=== PATIENT | female | born 1980 | race Caucasian/White ===

== ENCOUNTER 2017-01-28 18:51 | Inpatient (IN) | payer MEDICARE, MEDICAID ==
[~2017-01-28] VITALS: Ht 160 cm; Wt 78.1 kg
[~2017-01-28 18:51] MED LIST: BENZ1TAB10 PO; HALO5 PO; METF500T4 PO; OMEG1CAP6 PO; OXCA300T PO; TRAZ-147 PO; VITAD1000 PO
[2017-01-28] MEDS ORDERED: HALOPERIDOL LACTATE 5 MG/ML VIAL IM ONE (20:30)
[2017-01-28] MEDS ORDERED: DiphenhydrAMINE HCL 50 MG/ML VIAL IM ONE (20:30)
[2017-01-28] MEDS ORDERED: LORazepam 2 MG/ML VIAL IM ONE (20:30)
[2017-01-28] MEDS ORDERED: ZOLPIDEM TARTRATE 10 MG TABLET PO PRN (20:45)
[2017-01-28] MEDS ORDERED: HALOPERIDOL 5 MG TABLET PO PRN (20:45)
[2017-01-28 20:47] LABS: BASOPHILS % (AUTO) 0.4 % (0.0-2.0); EOSINOPHILS % (AUTO) 13.1 % (1.0-6.0); HEMATOCRIT 40.4 % (36-46); HEMOGLOBIN 13.1 g/dL (12.0-16.0); LYMPHOCYTES # (AUTO) 3.3 K/uL (1.0-4.8); LYMPHOCYTES % (AUTO) 28.1 % (22.0-44.0); MEAN CORPUSCULAR HEMOGLOBIN 28.3 pg (26.0-34.0); MEAN CORPUSCULAR HGB CONC 32.5 G/dL (31.0-37.0); MEAN CORPUSCULAR VOLUME 87 fL (80-100); MONOCYTES # (AUTO) 0.6 K/uL (0.1-1.0); MONOCYTES % (AUTO) 4.7 % (2.0-9.0); NEUTROPHILS # (AUTO) 6.4 K/uL (1.8-7.7); NEUTROPHILS % (AUTO) 53.7 % (40.0-70.0); PLATELET COUNT (AUTO) 211 K/uL (150-450); RED BLOOD CELL COUNT(AUTO) 4.65 MIL/uL (4.00-5.20); RED CELL DISTRIBUTION WIDTH 13.2 % (11.5-14.5); WHITE BLOOD COUNT (AUTO) 11.9 K/uL (4.5-11.0)
[2017-01-28 20:49] LABS: ANION GAP 9 mmol/L (8-16); CALCIUM, TOTAL 8.6 mg/dL (8.8-10.5); CARBON DIOXIDE 29 mmol/L (22-29); CHLORIDE 102 mmol/L (98-107); CREATININE 0.81 mg/dL (0.60-1.30); GLOMERULAR FILTR. RATE CALC > 60 mL/min (>60); POTASSIUM 3.6 mmol/L (3.5-5.1); SODIUM SERUM 140 mmol/L (136-145); UREA NITROGEN, BLOOD 7 mg/dL (7-18)
[2017-01-28 20:55] LABS: ALANINE AMINOTRANSFERASE 32 U/L (12-78); ALBUMIN 4.2 g/dL (3.4-5.0); ASPARTATE AMINOTRANSFERASE 14 U/L (15-37); BILIRUBIN,TOTAL 0.2 mg/dL (0.1-1.0); TOTAL PROTEIN, SERUM 8.3 g/dL (6.4-8.2)
[2017-01-29 00:16] VITALS: BP 125/76
[2017-01-29 00:17] LABS: GLUCOSE COMMENT 1 Doctor Notified; GLUCOSE,POINT OF CARE 229 MG/DL (70-110)
[2017-01-29] MEDS: DULoxetine HCL 30 MG CAPSULE PO SCH ×2 (01:00→09:11)
[2017-01-29] MEDS ORDERED: -PHARMACY VACCINE NOTE- MISC ONE ×2 (01:00)
[2017-01-29] MEDS ORDERED: INFLUENZA VIRUS VACCINE QVS 2016-17 (3YR+)/PF 60 MCG/0.5 ML SYRINGE IM ONE (01:00)
[2017-01-29] MEDS: BENZTROPINE MESYLATE 1 MG TABLET PO SCH ×2 (01:00→09:11)
[2017-01-29] MEDS: TraZODone HCL 100 MG TABLET PO SCH ×2 (01:01→20:35)
[2017-01-29] MEDS ORDERED: MAGNESIUM HYDROXIDE SUSPENSION 30 ML UDCUP PO PRN (08:15)
[2017-01-29] MEDS ORDERED: ALBUTEROL SULFATE HFA 90 MCG/PUFF 8 GM INHALER IH PRN (08:15)
[2017-01-29] MEDS ORDERED: MAG HYDROX/AL HYDROX/SIMETH ES 30 ML SUSPENSION UDCUP PO PRN (08:15)
[2017-01-29] MEDS ORDERED: BENZOCAINE/MENTHOL LOZENGE MM PRN (08:15)
[2017-01-29] MEDS ORDERED: IBUPROFEN 600 MG TABLET PO PRN (08:15)
[2017-01-29] MEDS ORDERED: ONDANSETRON HCL 4 MG TABLET PO PRN (08:15)
[2017-01-29] MEDS ORDERED: CloNIDine HCL 0.1 MG TABLET PO PRN (08:15)
[2017-01-29] MEDS ORDERED: BACITRACIN 28.4 GM OINTMENT TP PRN (08:15)
[2017-01-29] MEDS ORDERED: GLUCAGON,HUMAN RECOMBINANT 1 MG VIAL IM PRN (08:15)
[2017-01-29] MEDS ORDERED: PETROLATUM,WHITE 71 GM JELLY TP PRN (08:15)
[2017-01-29] MEDS ORDERED: LOPERAMIDE HCL 2 MG CAPSULE PO PRN (08:15)
[2017-01-29] MEDS ORDERED: ACETAMINOPHEN 325 MG TABLET PO PRN (08:15)
[2017-01-29 08:56] VITALS: BP 100/66
[2017-01-29] MEDS: FISH OIL/OMEGA-3 FATTY ACIDS 500 MG CAPSULE PO SCH (09:11)
[2017-01-29] MEDS: GABAPENTIN 300 MG CAPSULE PO SCH ×3 (09:11→16:21)
[2017-01-29] MEDS: HALOPERIDOL 5 MG TABLET PO SCH ×2 (09:11→16:22)
[2017-01-29] MEDS: CHOLECALCIFEROL (VIT D3) 1,000 UNITS TABLET PO SCH (09:11)
[2017-01-29 11:29] LABS: GLUCOSE,POINT OF CARE 263 MG/DL (70-110)
[2017-01-29] MEDS: LORazepam 2 MG TABLET PO PRN (11:55)
[2017-01-29 16:14] VITALS: BP 107/64
[2017-01-29 16:17] LABS: GLUCOSE,POINT OF CARE 165 MG/DL (70-110)
[2017-01-29] MEDS: MetFORMIN HCL 500 MG TABLET PO SCH (16:22)
[2017-01-29] MEDS: HALOPERIDOL 10 MG TABLET PO SCH (20:35)
[2017-01-29 20:36] LABS: GLUCOSE,POINT OF CARE 215 MG/DL (70-110)
[2017-01-30 06:31] LABS: GLUCOSE,POINT OF CARE 136 MG/DL (70-110)
[2017-01-30] MEDS: MetFORMIN HCL 500 MG TABLET PO SCH ×2 (06:42→16:56)
[2017-01-30] MEDS: HALOPERIDOL 5 MG TABLET PO SCH ×2 (08:25→16:57)
[2017-01-30] MEDS: DULoxetine HCL 30 MG CAPSULE PO SCH (08:25)
[2017-01-30] MEDS: FISH OIL/OMEGA-3 FATTY ACIDS 500 MG CAPSULE PO SCH (08:25)
[2017-01-30] MEDS: BENZTROPINE MESYLATE 1 MG TABLET PO SCH (08:25)
[2017-01-30] MEDS: CHOLECALCIFEROL (VIT D3) 1,000 UNITS TABLET PO SCH (08:26)
[2017-01-30] MEDS: GABAPENTIN 300 MG CAPSULE PO SCH ×3 (08:26→16:56)
[2017-01-30 09:08] VITALS: BP 100/59
[2017-01-30] MEDS: LORazepam 2 MG TABLET PO PRN (10:42)
[2017-01-30] MEDS ORDERED: DULoxetine HCL 30 MG CAPSULE PO ONE (11:15)
[2017-01-30 11:36] LABS: GLUCOSE,POINT OF CARE 210 MG/DL (70-110)
[2017-01-30 15:59] VITALS: BP 118/62
[2017-01-30 16:09] VITALS: BP 112/71
[2017-01-30 17:12] LABS: GLUCOSE,POINT OF CARE 154 MG/DL (70-110)
[2017-01-30] MEDS: INSULIN ASPART 100 UNITS/ML SQ PRN (20:15)
[2017-01-30] MEDS: HALOPERIDOL 10 MG TABLET PO SCH (20:16)
[2017-01-30] MEDS: TraZODone HCL 100 MG TABLET PO SCH (20:16)
[2017-01-30 21:17] LABS: GLUCOSE,POINT OF CARE 228 MG/DL (70-110)
[2017-01-31] MEDS: MetFORMIN HCL 500 MG TABLET PO SCH ×2 (06:39→16:27)
[2017-01-31] MEDS: INSULIN ASPART 100 UNITS/ML SQ PRN ×2 (06:40→17:05)
[2017-01-31 07:15] VITALS: BP 110/72
[2017-01-31 07:21] LABS: GLUCOSE,POINT OF CARE 156 MG/DL (70-110)
[2017-01-31] MEDS: HALOPERIDOL 5 MG TABLET PO SCH ×2 (08:35→16:26)
[2017-01-31] MEDS: CHOLECALCIFEROL (VIT D3) 1,000 UNITS TABLET PO SCH (08:35)
[2017-01-31] MEDS: GABAPENTIN 300 MG CAPSULE PO SCH ×3 (08:35→16:46)
[2017-01-31] MEDS: FISH OIL/OMEGA-3 FATTY ACIDS 500 MG CAPSULE PO SCH (08:36)
[2017-01-31] MEDS: DULoxetine HCL 60 MG CAPSULE PO SCH (08:36)
[2017-01-31] MEDS: BENZTROPINE MESYLATE 1 MG TABLET PO SCH (08:36)
[2017-01-31 08:45] VITALS: BP 114/59
[2017-01-31] MEDS ORDERED: DULoxetine HCL 30 MG CAPSULE PO SCH (09:00)
[2017-01-31 12:26] LABS: GLUCOSE,POINT OF CARE 175 MG/DL (70-110)
[2017-01-31] MEDS: LORazepam 2 MG TABLET PO PRN (14:43)
[2017-01-31 16:21] VITALS: BP 115/68
[2017-01-31 16:36] LABS: GLUCOSE,POINT OF CARE 186 MG/DL (70-110)
[2017-01-31] MEDS: HALOPERIDOL 10 MG TABLET PO SCH (20:17)
[2017-01-31] MEDS: TraZODone HCL 100 MG TABLET PO SCH (20:17)
[2017-01-31 20:22] LABS: GLUCOSE,POINT OF CARE 204 MG/DL (70-110)
[2017-02-01 06:47] LABS: GLUCOSE,POINT OF CARE 190 MG/DL (70-110)
[2017-02-01] MEDS: INSULIN ASPART 100 UNITS/ML SQ PRN (06:48)
[2017-02-01] MEDS: MetFORMIN HCL 500 MG TABLET PO SCH ×2 (06:53→16:09)
[2017-02-01 07:12] VITALS: BP 112/68
[2017-02-01 08:20] VITALS: BP 105/72
[2017-02-01] MEDS: GABAPENTIN 300 MG CAPSULE PO SCH ×3 (08:53→16:09)
[2017-02-01] MEDS: DULoxetine HCL 60 MG CAPSULE PO SCH (08:53)
[2017-02-01] MEDS: CHOLECALCIFEROL (VIT D3) 1,000 UNITS TABLET PO SCH (08:53)
[2017-02-01] MEDS: BENZTROPINE MESYLATE 1 MG TABLET PO SCH (08:53)
[2017-02-01] MEDS: HALOPERIDOL 5 MG TABLET PO SCH ×2 (08:53→16:09)
[2017-02-01] MEDS: FISH OIL/OMEGA-3 FATTY ACIDS 500 MG CAPSULE PO SCH (08:53)
[2017-02-01] MEDS: LORazepam 2 MG TABLET PO PRN ×2 (11:13→16:09)
[2017-02-01 11:47] LABS: GLUCOSE,POINT OF CARE 341 MG/DL (70-110)
[2017-02-01 16:47] VITALS: BP 115/71
[2017-02-01 16:57] LABS: GLUCOSE COMMENT 1 Received Meds; GLUCOSE,POINT OF CARE 175 MG/DL (70-110)
[2017-02-01] MEDS: TraZODone HCL 100 MG TABLET PO SCH (20:35)
[2017-02-01] MEDS: HALOPERIDOL 10 MG TABLET PO SCH (20:35)
[2017-02-01 21:06] LABS: GLUCOSE COMMENT 1 Received Meds; GLUCOSE,POINT OF CARE 185 MG/DL (70-110)
[2017-02-02 06:26] LABS: GLUCOSE,POINT OF CARE 152 MG/DL (70-110)
[2017-02-02] MEDS: INSULIN ASPART 100 UNITS/ML SQ PRN ×2 (06:50→12:18)
[2017-02-02] MEDS: MetFORMIN HCL 500 MG TABLET PO SCH ×2 (06:50→16:24)
[2017-02-02 08:24] VITALS: BP 100/60
[2017-02-02] MEDS: GABAPENTIN 300 MG CAPSULE PO SCH ×3 (08:42→16:24)
[2017-02-02] MEDS: BENZTROPINE MESYLATE 1 MG TABLET PO SCH (08:43)
[2017-02-02] MEDS: LORazepam 2 MG TABLET PO PRN (08:43)
[2017-02-02] MEDS: FISH OIL/OMEGA-3 FATTY ACIDS 500 MG CAPSULE PO SCH (08:43)
[2017-02-02] MEDS: DULoxetine HCL 60 MG CAPSULE PO SCH (08:43)
[2017-02-02] MEDS: HALOPERIDOL 5 MG TABLET PO SCH ×2 (08:43→16:24)
[2017-02-02] MEDS: CHOLECALCIFEROL (VIT D3) 1,000 UNITS TABLET PO SCH (08:43)
[2017-02-02 12:07] LABS: GLUCOSE,POINT OF CARE 266 MG/DL (70-110)
[2017-02-02 17:02] LABS: GLUCOSE COMMENT 1 Received Meds; GLUCOSE,POINT OF CARE 379 MG/DL (70-110)
[2017-02-02 18:09] VITALS: BP 100/65
[2017-02-02] MEDS: TraZODone HCL 100 MG TABLET PO SCH (20:13)
[2017-02-02] MEDS: HALOPERIDOL 10 MG TABLET PO SCH (20:13)
[2017-02-03 06:36] LABS: GLUCOSE,POINT OF CARE 163 MG/DL (70-110)
[2017-02-03 06:40] VITALS: BP 114/65
[2017-02-03] MEDS: MetFORMIN HCL 500 MG TABLET PO SCH (06:44)
[2017-02-03] MEDS: INSULIN ASPART 100 UNITS/ML SQ PRN (06:45)
[2017-02-03] MEDS: CHOLECALCIFEROL (VIT D3) 1,000 UNITS TABLET PO SCH (08:12)
[2017-02-03] MEDS: FISH OIL/OMEGA-3 FATTY ACIDS 500 MG CAPSULE PO SCH (08:12)
[2017-02-03] MEDS: GABAPENTIN 300 MG CAPSULE PO SCH (08:12)
[2017-02-03] MEDS: HALOPERIDOL 5 MG TABLET PO SCH (08:12)
[2017-02-03] MEDS: DULoxetine HCL 60 MG CAPSULE PO SCH (08:13)
[2017-02-03] MEDS: BENZTROPINE MESYLATE 1 MG TABLET PO SCH (08:13)
[2017-02-03] MEDS ORDERED: GABA-531 PO (09:37)
[2017-02-03] MEDS ORDERED: TRAZ-147 PO (09:38)
[2017-02-03] MEDS ORDERED: HALO10 PO (09:38)
[2017-02-03] MEDS ORDERED: HALO5 PO (09:38)
[2017-02-03] MEDS ORDERED: DULO60CA44 PO (09:39)
== END 2017-02-03 10:10 | disposition home or self-care (01) | DRG 885 ==
LOC: EMS 18:53 → B3A 20:56
DX: F25.0 Schizoaffective disorder, bipolar type (principal); R45.851 Suicidal ideations; E78.1 Pure hyperglyceridemia; E66.9 Obesity, unspecified; F41.9 Anxiety disorder, unspecified; E55.9 Vitamin D deficiency, unspecified; E11.65 Type 2 diabetes mellitus with hyperglycemia; M54.5 Low back pain; F43.10 Post-traumatic stress disorder, unspecified; F60.3 Borderline personality disorder; G47.00 Insomnia, unspecified; Z68.30 Body mass index [BMI] 30.0-30.9, adult; K59.00 Constipation, unspecified; Z79.899 Other long term (current) drug therapy; Z28.21 Immunization not carried out because of patient refusal; Z91.5 Personal history of self-harm; Z90.49 Acquired absence of other specified parts of digestive tract; Z98.51 Tubal ligation status
CPT/HCPCS: 82962; 96372; 99285; G0480; J1200; J1630; J2060

== ENCOUNTER 2017-03-31 13:13 | Inpatient (IN) | payer MEDICARE, MEDICAID ==
[~2017-03-31] VITALS: Ht 160 cm; Wt 79.6 kg
[~2017-03-31 13:13] MED LIST changes: +DULO60CA44 PO; +GABA-531 PO; +HALO10 PO; -OXCA300T PO
[2017-03-31] MEDS ORDERED: HALOPERIDOL 5 MG TABLET PO PRN (13:30)
[2017-03-31] MEDS ORDERED: ZOLPIDEM TARTRATE 10 MG TABLET PO PRN (13:30)
[2017-03-31] MEDS ORDERED: LORazepam 2 MG TABLET PO PRN (13:30)
[2017-03-31 13:33] VITALS: BP 124/85
[2017-03-31 16:00] VITALS: BP 123/60
[2017-03-31] MEDS: GABAPENTIN 300 MG CAPSULE PO SCH (17:29)
[2017-03-31] MEDS: HALOPERIDOL 5 MG TABLET PO SCH (17:29)
[2017-03-31] MEDS: MetFORMIN HCL 500 MG TABLET PO SCH (17:29)
[2017-03-31] MEDS: HALOPERIDOL 10 MG TABLET PO SCH (20:41)
[2017-03-31] MEDS: TraZODone HCL 100 MG TABLET PO SCH (20:41)
[2017-04-01 00:32] VITALS: BP 108/64
[2017-04-01] MEDS: MetFORMIN HCL 500 MG TABLET PO SCH ×2 (06:27→16:34)
[2017-04-01 09:10] VITALS: BP 108/68
[2017-04-01] MEDS ORDERED: BENZOCAINE/MENTHOL LOZENGE MM PRN (09:15)
[2017-04-01] MEDS ORDERED: BACITRACIN 28.4 GM OINTMENT TP PRN (09:15)
[2017-04-01] MEDS ORDERED: IBUPROFEN 600 MG TABLET PO PRN (09:15)
[2017-04-01] MEDS ORDERED: ONDANSETRON HCL 4 MG TABLET PO PRN (09:15)
[2017-04-01] MEDS ORDERED: MAG HYDROX/AL HYDROX/SIMETH ES 30 ML SUSPENSION UDCUP PO PRN (09:15)
[2017-04-01] MEDS ORDERED: PETROLATUM,WHITE 71 GM JELLY TP PRN (09:15)
[2017-04-01] MEDS ORDERED: GLUCAGON,HUMAN RECOMBINANT 1 MG VIAL IM PRN (09:15)
[2017-04-01] MEDS ORDERED: LOPERAMIDE HCL 2 MG CAPSULE PO PRN (09:15)
[2017-04-01] MEDS ORDERED: ALBUTEROL SULFATE HFA 90 MCG/PUFF 8 GM INHALER IH PRN (09:15)
[2017-04-01] MEDS ORDERED: ACETAMINOPHEN 325 MG TABLET PO PRN (09:15)
[2017-04-01] MEDS ORDERED: MAGNESIUM HYDROXIDE SUSPENSION 30 ML UDCUP PO PRN (09:15)
[2017-04-01] MEDS ORDERED: CloNIDine HCL 0.1 MG TABLET PO PRN (09:15)
[2017-04-01] MEDS: PIOGLITAZONE HCL 30 MG TABLET PO SCH (09:25)
[2017-04-01] MEDS: HALOPERIDOL 5 MG TABLET PO SCH ×2 (09:25→16:34)
[2017-04-01] MEDS: CHOLECALCIFEROL (VIT D3) 1,000 UNITS TABLET PO SCH (09:25)
[2017-04-01] MEDS: DULoxetine HCL 60 MG CAPSULE PO SCH (09:25)
[2017-04-01] MEDS: FISH OIL/OMEGA-3 FATTY ACIDS 500 MG CAPSULE PO SCH (09:25)
[2017-04-01] MEDS: BENZTROPINE MESYLATE 1 MG TABLET PO SCH (09:25)
[2017-04-01] MEDS: GABAPENTIN 300 MG CAPSULE PO SCH ×3 (09:25→16:34)
[2017-04-01] MEDS: INSULIN ASPART 100 UNITS/ML SQ PRN ×3 (10:56→21:12)
[2017-04-01 10:57] LABS: GLUCOSE,POINT OF CARE 144 MG/DL (70-110)
[2017-04-01 16:00] VITALS: BP 110/68
[2017-04-01 17:17] LABS: GLUCOSE,POINT OF CARE 159 MG/DL (70-110)
[2017-04-01] MEDS: HALOPERIDOL 10 MG TABLET PO SCH (20:16)
[2017-04-01] MEDS: TraZODone HCL 100 MG TABLET PO SCH (20:16)
[2017-04-01 21:17] LABS: GLUCOSE,POINT OF CARE 152 MG/DL (70-110)
[2017-04-02 00:56] VITALS: BP 100/67
[2017-04-02 06:27] LABS: GLUCOSE,POINT OF CARE 104 MG/DL (70-110)
[2017-04-02] MEDS: MetFORMIN HCL 500 MG TABLET PO SCH ×2 (07:01→16:21)
[2017-04-02 08:08] LABS: BASOPHILS % (AUTO) 0.5 % (0.0-2.0); EOSINOPHILS % (AUTO) 2.6 % (1.0-6.0); HEMATOCRIT 37.7 % (36-46); LYMPHOCYTES # (AUTO) 2.8 K/uL (1.0-4.8); LYMPHOCYTES % (AUTO) 40.1 % (22.0-44.0); MEAN CORPUSCULAR HEMOGLOBIN 27.7 pg (26.0-34.0); MEAN CORPUSCULAR HGB CONC 31.7 G/dL (31.0-37.0); MEAN CORPUSCULAR VOLUME 88 fL (80-100); MONOCYTES # (AUTO) 0.4 K/uL (0.1-1.0); MONOCYTES % (AUTO) 6.3 % (2.0-9.0); NEUTROPHILS # (AUTO) 3.6 K/uL (1.8-7.7); NEUTROPHILS % (AUTO) 50.5 % (40.0-70.0); PLATELET COUNT (AUTO) 186 K/uL (150-450); RED BLOOD CELL COUNT(AUTO) 4.31 MIL/uL (4.00-5.20); RED CELL DISTRIBUTION WIDTH 13.7 % (11.5-14.5); WHITE BLOOD COUNT (AUTO) 7.1 K/uL (4.5-11.0)
[2017-04-02 08:51] LABS: ALANINE AMINOTRANSFERASE 35 U/L (12-78); ALBUMIN 3.6 g/dL (3.4-5.0); ANION GAP 9 mmol/L (8-16); ASPARTATE AMINOTRANSFERASE 17 U/L (15-37); BILIRUBIN,TOTAL 0.2 mg/dL (0.1-1.0); CALCIUM, TOTAL 8.5 mg/dL (8.8-10.5); CARBON DIOXIDE 28 mmol/L (22-29); CHLORIDE 102 mmol/L (98-107); CREATININE 0.79 mg/dL (0.60-1.30); GLOMERULAR FILTR. RATE CALC > 60 mL/min (>60); POTASSIUM 3.8 mmol/L (3.5-5.1); SODIUM SERUM 139 mmol/L (136-145); THYROID STIMULATING HORMONE 1.27 uIU/mL (0.36-3.74); TOTAL PROTEIN, SERUM 6.9 g/dL (6.4-8.2); UREA NITROGEN, BLOOD 13 mg/dL (7-18)
[2017-04-02] MEDS: HALOPERIDOL 5 MG TABLET PO SCH ×2 (09:00→16:21)
[2017-04-02 09:29] VITALS: BP 96/67
[2017-04-02] MEDS: DULoxetine HCL 60 MG CAPSULE PO SCH (09:30)
[2017-04-02] MEDS: GABAPENTIN 300 MG CAPSULE PO SCH ×3 (09:30→16:21)
[2017-04-02] MEDS: CHOLECALCIFEROL (VIT D3) 1,000 UNITS TABLET PO SCH (09:30)
[2017-04-02] MEDS: FISH OIL/OMEGA-3 FATTY ACIDS 500 MG CAPSULE PO SCH (09:30)
[2017-04-02] MEDS: PIOGLITAZONE HCL 30 MG TABLET PO SCH (09:30)
[2017-04-02] MEDS: BENZTROPINE MESYLATE 1 MG TABLET PO SCH (09:30)
[2017-04-02 11:07] LABS: GLUCOSE,POINT OF CARE 131 MG/DL (70-110)
[2017-04-02 16:00] VITALS: BP 106/68
[2017-04-02 16:12] LABS: GLUCOSE,POINT OF CARE 165 MG/DL (70-110)
[2017-04-02] MEDS: INSULIN ASPART 100 UNITS/ML SQ PRN ×2 (16:22→21:02)
[2017-04-02] MEDS: TraZODone HCL 100 MG TABLET PO SCH (21:01)
[2017-04-02] MEDS: HALOPERIDOL 10 MG TABLET PO SCH (21:01)
[2017-04-02 23:54] LABS: GLUCOSE,POINT OF CARE 239 MG/DL (70-110)
[2017-04-03 00:50] VITALS: BP 100/63
[2017-04-03] MEDS ORDERED: PIOG30TA2 PO (05:37)
[2017-04-03] MEDS ORDERED: TRAZ-147 PO (05:37)
[2017-04-03] MEDS ORDERED: HALO5 PO (05:40)
[2017-04-03 06:42] LABS: GLUCOSE,POINT OF CARE 90 MG/DL (70-110)
[2017-04-03] MEDS: MetFORMIN HCL 500 MG TABLET PO SCH (06:51)
[2017-04-03 08:09] VITALS: BP 102/57
[2017-04-03] MEDS: GABAPENTIN 300 MG CAPSULE PO SCH (08:32)
[2017-04-03] MEDS: DULoxetine HCL 60 MG CAPSULE PO SCH (08:32)
[2017-04-03] MEDS: FISH OIL/OMEGA-3 FATTY ACIDS 500 MG CAPSULE PO SCH (08:32)
[2017-04-03] MEDS: PIOGLITAZONE HCL 30 MG TABLET PO SCH (08:32)
[2017-04-03] MEDS: HALOPERIDOL 5 MG TABLET PO SCH (08:32)
[2017-04-03] MEDS: CHOLECALCIFEROL (VIT D3) 1,000 UNITS TABLET PO SCH (08:32)
[2017-04-03] MEDS: BENZTROPINE MESYLATE 1 MG TABLET PO SCH (08:32)
[2017-04-03] MEDS ORDERED: GABA-531 PO (08:58)
== END 2017-04-03 09:45 | disposition home or self-care (01) | DRG 750 ==
LOC: B2S 13:35 → EDSTATUS 14:23
DX: F25.0 Schizoaffective disorder, bipolar type (principal); R45.851 Suicidal ideations; E11.65 Type 2 diabetes mellitus with hyperglycemia; E78.5 Hyperlipidemia, unspecified; E55.9 Vitamin D deficiency, unspecified; F41.9 Anxiety disorder, unspecified; F60.3 Borderline personality disorder; K59.00 Constipation, unspecified; G47.00 Insomnia, unspecified; E66.9 Obesity, unspecified; Z91.5 Personal history of self-harm; Z68.31 Body mass index [BMI] 31.0-31.9, adult; Z98.51 Tubal ligation status; Z90.49 Acquired absence of other specified parts of digestive tract
CPT/HCPCS: 82962; 84439; 84443

== ENCOUNTER 2017-05-20 12:45 | Inpatient (IN) | payer MEDICARE, MEDICAID ==
[~2017-05-20] VITALS: Ht 160 cm; Wt 83.1 kg
[~2017-05-20 12:45] MED LIST changes: +PIOG30TA2 PO
[2017-05-20] MEDS ORDERED: ZOLPIDEM TARTRATE 10 MG TABLET PO PRN (13:15)
[2017-05-20 13:34] VITALS: BP 112/79
[2017-05-20 14:16] VITALS: BP 118/78
[2017-05-20 15:01] LABS: GLUCOSE,POINT OF CARE 84 MG/DL (70-110)
[2017-05-20] MEDS: GABAPENTIN 300 MG CAPSULE PO SCH ×2 (15:06→16:21)
[2017-05-20 16:00] VITALS: BP 117/65
[2017-05-20] MEDS: LOVASTATIN 20 MG TABLET PO SCH (16:21)
[2017-05-20] MEDS: GlipiZIDE 10 MG TABLET PO SCH (16:21)
[2017-05-20] MEDS: HALOPERIDOL 5 MG TABLET PO SCH (16:21)
[2017-05-20] MEDS: MetFORMIN HCL 500 MG TABLET PO SCH (16:55)
[2017-05-20] MEDS ORDERED: LORazepam 2 MG/ML VIAL ONE (18:25)
[2017-05-20] MEDS ORDERED: DiphenhydrAMINE HCL 50 MG/ML VIAL IM ONE ×2 (18:30)
[2017-05-20] MEDS ORDERED: LORazepam 2 MG/ML VIAL IM ONE ×2 (18:30)
[2017-05-20] MEDS ORDERED: HALOPERIDOL LACTATE 5 MG/ML VIAL IM ONE ×2 (18:30)
[2017-05-20] MEDS: TraZODone HCL 100 MG TABLET PO SCH (21:00)
[2017-05-20] MEDS: HALOPERIDOL 10 MG TABLET PO SCH (21:00)
[2017-05-20 23:22] LABS: GLUCOSE,POINT OF CARE 96 MG/DL (70-110)
[2017-05-21 01:45] VITALS: BP 107/62
[2017-05-21] MEDS: MetFORMIN HCL 500 MG TABLET PO SCH ×2 (06:46→16:44)
[2017-05-21] MEDS: GlipiZIDE 10 MG TABLET PO SCH ×2 (06:46→16:14)
[2017-05-21 06:48] LABS: GLUCOSE,POINT OF CARE 72 MG/DL (70-110)
[2017-05-21 08:40] LABS: BASOPHILS # (AUTO) 0.04 K/uL (0.00-0.20); BASOPHILS % (AUTO) 0.5 % (0.0-2.0); EOSINOPHILS # (AUTO) 0.18 K/uL (0.00-0.70); EOSINOPHILS % (AUTO) 2.36 % (1.0-6.0); HEMATOCRIT 35.9 % (36-46); HEMOGLOBIN 11.8 g/dL (12.0-16.0); LYMPHOCYTES # (AUTO) 2.6 K/uL (1.0-4.8); LYMPHOCYTES % (AUTO) 34.3 % (22.0-44.0); MEAN CORPUSCULAR VOLUME 88 fL (80-100); MONOCYTES # (AUTO) 0.6 K/uL (0.1-1.0); MONOCYTES % (AUTO) 7.4 % (2.0-9.0); NEUTROPHILS # (AUTO) 4.2 K/uL (1.8-7.7); NEUTROPHILS % (AUTO) 55.5 % (40.0-70.0); PLATELET COUNT (AUTO) 187 K/uL (150-450); RED BLOOD CELL COUNT(AUTO) 4.09 MIL/uL (4.00-5.20); RED CELL DISTRIBUTION WIDTH 13.6 % (11.5-14.5); WHITE BLOOD COUNT (AUTO) 7.5 K/uL (4.5-11.0)
[2017-05-21] MEDS: DULoxetine HCL 60 MG CAPSULE PO SCH (08:49)
[2017-05-21] MEDS: FISH OIL/OMEGA-3 FATTY ACIDS 500 MG CAPSULE PO SCH (08:49)
[2017-05-21] MEDS: HALOPERIDOL 5 MG TABLET PO SCH ×2 (08:50→16:14)
[2017-05-21] MEDS: CHOLECALCIFEROL (VIT D3) 1,000 UNITS TABLET PO SCH (08:50)
[2017-05-21] MEDS: GABAPENTIN 300 MG CAPSULE PO SCH ×3 (08:50→16:14)
[2017-05-21] MEDS: BENZTROPINE MESYLATE 1 MG TABLET PO SCH (08:50)
[2017-05-21] MEDS ORDERED: ONDANSETRON HCL 4 MG TABLET PO PRN (09:00)
[2017-05-21] MEDS ORDERED: PETROLATUM,WHITE 71 GM JELLY TP PRN (09:00)
[2017-05-21] MEDS ORDERED: PIOGLITAZONE HCL 30 MG TABLET PO SCH (09:00)
[2017-05-21] MEDS ORDERED: CloNIDine HCL 0.1 MG TABLET PO PRN (09:00)
[2017-05-21] MEDS ORDERED: MAGNESIUM HYDROXIDE SUSPENSION 30 ML UDCUP PO PRN (09:00)
[2017-05-21] MEDS ORDERED: BENZOCAINE/MENTHOL LOZENGE MM PRN (09:00)
[2017-05-21] MEDS ORDERED: BACITRACIN 28.4 GM OINTMENT TP PRN (09:00)
[2017-05-21] MEDS ORDERED: ACETAMINOPHEN 325 MG TABLET PO PRN (09:00)
[2017-05-21] MEDS ORDERED: LOPERAMIDE HCL 2 MG CAPSULE PO PRN (09:00)
[2017-05-21] MEDS ORDERED: ALBUTEROL SULFATE HFA 90 MCG/PUFF 8 GM INHALER IH PRN (09:00)
[2017-05-21] MEDS ORDERED: MAG HYDROX/AL HYDROX/SIMETH ES 30 ML SUSPENSION UDCUP PO PRN (09:00)
[2017-05-21 09:16] VITALS: BP 104/65
[2017-05-21] MEDS: LORazepam 1 MG TABLET PO PRN ×2 (09:16→16:14)
[2017-05-21] MEDS: IBUPROFEN 600 MG TABLET PO PRN (09:16)
[2017-05-21 09:26] LABS: HEMOGLOBIN A1C 7.7 % (4.5-6.2)
[2017-05-21 09:39] LABS: ANION GAP 9 mmol/L (8-16); CARBON DIOXIDE 27 mmol/L (22-29); CHLORIDE 103 mmol/L (98-107); CHOL/HDL RATIO 4.2 (3.9-5.7); CREATININE 0.82 mg/dL (0.60-1.30); GLOMERULAR FILTR. RATE CALC > 60 mL/min (>60); POTASSIUM 4.1 mmol/L (3.5-5.1); SODIUM SERUM 139 mmol/L (136-145); THYROID STIMULATING HORMONE 2.42 uIU/mL (0.36-3.74); UREA NITROGEN, BLOOD 10 mg/dL (7-18)
[2017-05-21 16:06] VITALS: BP 103/66
[2017-05-21] MEDS: LOVASTATIN 20 MG TABLET PO SCH (16:14)
[2017-05-21 16:47] LABS: GLUCOSE,POINT OF CARE 130 MG/DL (70-110)
[2017-05-21 17:35] VITALS: BP 112/68
[2017-05-21] MEDS: TraZODone HCL 100 MG TABLET PO SCH (20:35)
[2017-05-21] MEDS: HALOPERIDOL 10 MG TABLET PO SCH (20:35)
[2017-05-22] MEDS: GlipiZIDE 10 MG TABLET PO SCH ×2 (06:35→16:09)
[2017-05-22] MEDS: MetFORMIN HCL 500 MG TABLET PO SCH ×2 (07:06→17:10)
[2017-05-22 07:07] LABS: GLUCOSE,POINT OF CARE 96 MG/DL (70-110)
[2017-05-22 08:39] VITALS: BP 97/62
[2017-05-22] MEDS: DULoxetine HCL 60 MG CAPSULE PO SCH (09:32)
[2017-05-22] MEDS: BENZTROPINE MESYLATE 1 MG TABLET PO SCH (09:32)
[2017-05-22] MEDS: FISH OIL/OMEGA-3 FATTY ACIDS 500 MG CAPSULE PO SCH (09:32)
[2017-05-22] MEDS: HALOPERIDOL 5 MG TABLET PO SCH ×2 (09:32→16:09)
[2017-05-22] MEDS: GABAPENTIN 300 MG CAPSULE PO SCH ×3 (09:33→16:10)
[2017-05-22] MEDS: CHOLECALCIFEROL (VIT D3) 1,000 UNITS TABLET PO SCH (09:33)
[2017-05-22 11:34] VITALS: BP 112/70
[2017-05-22] MEDS: IBUPROFEN 600 MG TABLET PO PRN (11:36)
[2017-05-22 12:36] VITALS: BP 105/68
[2017-05-22] MEDS: LORazepam 1 MG TABLET PO PRN (16:10)
[2017-05-22] MEDS: LOVASTATIN 20 MG TABLET PO SCH (16:10)
[2017-05-22 16:16] VITALS: BP 109/69
[2017-05-22 16:22] LABS: GLUCOSE,POINT OF CARE 121 MG/DL (70-110)
[2017-05-22] MEDS: TraZODone HCL 100 MG TABLET PO SCH (20:26)
[2017-05-22] MEDS: HALOPERIDOL 10 MG TABLET PO SCH (20:26)
[2017-05-23 05:25] VITALS: BP 110/70
[2017-05-23 05:37] LABS: GLUCOSE COMMENT 1 Received Meds; GLUCOSE,POINT OF CARE 120 MG/DL (70-110)
[2017-05-23] MEDS: GlipiZIDE 10 MG TABLET PO SCH (06:40)
[2017-05-23] MEDS: MetFORMIN HCL 500 MG TABLET PO SCH (06:40)
[2017-05-23] MEDS ORDERED: FERROUS SULFATE 325 MG EC TABLET PO SCH (07:00)
[2017-05-23] MEDS ORDERED: GLIP5 PO (08:03)
[2017-05-23] MEDS ORDERED: LOVA20 PO (08:03)
[2017-05-23] MEDS ORDERED: FERR-89 PO (08:03)
[2017-05-23 08:09] VITALS: BP 102/67
[2017-05-23] MEDS: BENZTROPINE MESYLATE 1 MG TABLET PO SCH (09:26)
[2017-05-23] MEDS: FISH OIL/OMEGA-3 FATTY ACIDS 500 MG CAPSULE PO SCH (09:26)
[2017-05-23] MEDS: LORazepam 1 MG TABLET PO PRN (09:27)
[2017-05-23] MEDS: CHOLECALCIFEROL (VIT D3) 1,000 UNITS TABLET PO SCH (09:27)
[2017-05-23] MEDS: GABAPENTIN 300 MG CAPSULE PO SCH ×2 (09:27→12:17)
[2017-05-23] MEDS: DULoxetine HCL 60 MG CAPSULE PO SCH (09:27)
[2017-05-23] MEDS: HALOPERIDOL 5 MG TABLET PO SCH (09:29)
[2017-05-23] MEDS: IBUPROFEN 600 MG TABLET PO PRN (09:33)
== END 2017-05-23 12:30 | disposition home or self-care (01) | DRG 885 ==
LOC: B3A 13:30
DX: F25.0 Schizoaffective disorder, bipolar type (principal); E11.65 Type 2 diabetes mellitus with hyperglycemia; K59.00 Constipation, unspecified; E55.9 Vitamin D deficiency, unspecified; E78.5 Hyperlipidemia, unspecified; E66.9 Obesity, unspecified; G47.00 Insomnia, unspecified; M54.5 Low back pain; Z68.32 Body mass index [BMI] 32.0-32.9, adult
CPT/HCPCS: 82962; 83036; 84436; 84443; J1200; J1630; J2060

== ENCOUNTER 2017-05-20 20:55 | Emergency (ER) | payer MEDICARE, OTHER ==
[~2017-05-20] VITALS: Ht 162.6 cm; Wt 90.0 kg
[2017-05-21 00:54] VITALS: BP 124/72
== END 2017-05-21 01:13 | disposition home or self-care (01) ==
LOC: EMS 20:58
DX: S60.221A Contusion of right hand, initial encounter (principal); E11.9 Type 2 diabetes mellitus without complications; Z02.89 Encounter for other administrative examinations; W22.8XXA Striking against or struck by other objects, initial encounter; Y93.89 Activity, other specified; Y92.89 Other specified places as the place of occurrence of the external cause; Y99.8 Other external cause status
CPT/HCPCS: 29280; 81025; 99284

== ENCOUNTER 2017-05-27 15:31 | Inpatient (IN) | payer MEDICARE, MEDICAID ==
[~2017-05-27] VITALS: Ht 160 cm; Wt 82.3 kg
[~2017-05-27 15:31] MED LIST changes: +FERR-89 PO; +GLIP5 PO; +LOVA20 PO; -PIOG30TA2 PO
[2017-05-27 17:28] VITALS: BP 104/69
[2017-05-27] MEDS: GABAPENTIN 300 MG CAPSULE PO SCH (18:35)
[2017-05-27] MEDS: LORazepam 2 MG TABLET PO PRN (18:35)
[2017-05-27] MEDS: HALOPERIDOL 5 MG TABLET PO PRN (18:35)
[2017-05-27] MEDS ORDERED: ACETAMINOPHEN 650 MG/20.3 ML SOLUTION UDCUP PO PRN (18:45)
[2017-05-27] MEDS: HALOPERIDOL 10 MG TABLET PO SCH (20:26)
[2017-05-27] MEDS: TraZODone HCL 100 MG TABLET PO SCH (20:27)
[2017-05-28 06:25] VITALS: BP 118/76
[2017-05-28] MEDS: BENZTROPINE MESYLATE 1 MG TABLET PO SCH (09:00)
[2017-05-28] MEDS: DULoxetine HCL 60 MG CAPSULE PO SCH (09:00)
[2017-05-28] MEDS: GABAPENTIN 300 MG CAPSULE PO SCH ×3 (09:00→16:39)
[2017-05-28 09:04] LABS: BASOPHILS # (AUTO) 0.03 K/uL (0.00-0.20); BASOPHILS % (AUTO) 0.4 % (0.0-2.0); EOSINOPHILS # (AUTO) 0.21 K/uL (0.00-0.70); EOSINOPHILS % (AUTO) 2.73 % (1.0-6.0); HEMATOCRIT 38.4 % (36-46); HEMOGLOBIN 12.5 g/dL (12.0-16.0); LYMPHOCYTES # (AUTO) 2.7 K/uL (1.0-4.8); LYMPHOCYTES % (AUTO) 34.3 % (22.0-44.0); MEAN CORPUSCULAR HEMOGLOBIN 28.8 pg (26.0-34.0); MEAN CORPUSCULAR HGB CONC 32.6 G/dL (31.0-37.0); MEAN CORPUSCULAR VOLUME 88 fL (80-100); MONOCYTES # (AUTO) 0.6 K/uL (0.1-1.0); MONOCYTES % (AUTO) 7.7 % (2.0-9.0); NEUTROPHILS # (AUTO) 4.3 K/uL (1.8-7.7); NEUTROPHILS % (AUTO) 54.8 % (40.0-70.0); PLATELET COUNT (AUTO) 201 K/uL (150-450); RED BLOOD CELL COUNT(AUTO) 4.34 MIL/uL (4.00-5.20); RED CELL DISTRIBUTION WIDTH 13.6 % (11.5-14.5); WHITE BLOOD COUNT (AUTO) 7.8 K/uL (4.5-11.0)
[2017-05-28] MEDS ORDERED: LOPERAMIDE HCL 2 MG CAPSULE PO PRN (09:15)
[2017-05-28] MEDS ORDERED: PETROLATUM,WHITE 71 GM JELLY TP PRN (09:15)
[2017-05-28] MEDS ORDERED: MAGNESIUM HYDROXIDE SUSPENSION 30 ML UDCUP PO PRN (09:15)
[2017-05-28] MEDS ORDERED: CloNIDine HCL 0.1 MG TABLET PO PRN (09:15)
[2017-05-28] MEDS ORDERED: BACITRACIN 28.4 GM OINTMENT TP PRN (09:15)
[2017-05-28] MEDS ORDERED: MAG HYDROX/AL HYDROX/SIMETH ES 30 ML SUSPENSION UDCUP PO PRN (09:15)
[2017-05-28] MEDS ORDERED: ONDANSETRON HCL 4 MG TABLET PO PRN (09:15)
[2017-05-28] MEDS ORDERED: ALBUTEROL SULFATE HFA 90 MCG/PUFF 8 GM INHALER IH PRN (09:15)
[2017-05-28] MEDS ORDERED: BENZOCAINE/MENTHOL LOZENGE MM PRN (09:15)
[2017-05-28] MEDS: ACETAMINOPHEN 325 MG TABLET PO PRN ×2 (09:23→16:40)
[2017-05-28 09:26] VITALS: BP 114/75
[2017-05-28 09:31] LABS: ALANINE AMINOTRANSFERASE 26 U/L (12-78); ALBUMIN 3.7 g/dL (3.4-5.0); ANION GAP 8 mmol/L (8-16); ASPARTATE AMINOTRANSFERASE 12 U/L (15-37); BILIRUBIN,TOTAL 0.3 mg/dL (0.1-1.0); CALCIUM, TOTAL 9.3 mg/dL (8.8-10.5); CARBON DIOXIDE 29 mmol/L (22-29); CHLORIDE 104 mmol/L (98-107); CHOL/HDL RATIO 5.6 (3.9-5.7); CREATININE 0.81 mg/dL (0.60-1.30); GLOMERULAR FILTR. RATE CALC > 60 mL/min (>60); POTASSIUM 4.4 mmol/L (3.5-5.1); SODIUM SERUM 141 mmol/L (136-145); THYROID STIMULATING HORMONE 0.97 uIU/mL (0.36-3.74); TOTAL PROTEIN, SERUM 6.9 g/dL (6.4-8.2); UREA NITROGEN, BLOOD 10 mg/dL (7-18)
[2017-05-28 10:23] VITALS: BP 112/72
[2017-05-28 12:02] LABS: GLUCOSE,POINT OF CARE 167 MG/DL (70-110)
[2017-05-28 16:19] VITALS: BP 109/66
[2017-05-28] MEDS: MetFORMIN HCL 500 MG TABLET PO SCH (16:39)
[2017-05-28] MEDS: GlipiZIDE 5 MG TABLET PO SCH (16:39)
[2017-05-28] MEDS: LORazepam 2 MG TABLET PO PRN (16:40)
[2017-05-28] MEDS: HALOPERIDOL 5 MG TABLET PO PRN (16:40)
[2017-05-28 16:52] LABS: GLUCOSE COMMENT 1 Received Meds; GLUCOSE,POINT OF CARE 190 MG/DL (70-110)
[2017-05-28] MEDS: HALOPERIDOL 10 MG TABLET PO SCH (20:33)
[2017-05-28] MEDS: TraZODone HCL 100 MG TABLET PO SCH (20:33)
[2017-05-29] MEDS: GlipiZIDE 5 MG TABLET PO SCH ×2 (06:33→16:20)
[2017-05-29] MEDS: MetFORMIN HCL 500 MG TABLET PO SCH ×2 (06:33→16:57)
[2017-05-29] MEDS: FISH OIL/OMEGA-3 FATTY ACIDS 500 MG CAPSULE PO SCH (08:26)
[2017-05-29] MEDS: GABAPENTIN 300 MG CAPSULE PO SCH ×3 (08:26→16:20)
[2017-05-29] MEDS: CHOLECALCIFEROL (VIT D3) 1,000 UNITS TABLET PO SCH (08:27)
[2017-05-29] MEDS: BENZTROPINE MESYLATE 1 MG TABLET PO SCH (08:27)
[2017-05-29] MEDS: LORazepam 2 MG TABLET PO PRN ×2 (08:27→16:57)
[2017-05-29] MEDS: DULoxetine HCL 60 MG CAPSULE PO SCH (08:27)
[2017-05-29 08:42] VITALS: BP 94/60
[2017-05-29 09:04] LABS: GLUCOSE,POINT OF CARE 116 MG/DL (70-110)
[2017-05-29 16:06] VITALS: BP 106/68
[2017-05-29] MEDS: IBUPROFEN 600 MG TABLET PO PRN (16:20)
[2017-05-29] MEDS: HALOPERIDOL 5 MG TABLET PO PRN (16:20)
[2017-05-29 17:20] VITALS: BP 118/65
[2017-05-29 18:17] LABS: GLUCOSE,POINT OF CARE 259 MG/DL (70-110)
[2017-05-29 18:17] LABS: GLUCOSE,POINT OF CARE 86 MG/DL (70-110)
[2017-05-29] MEDS: HALOPERIDOL 10 MG TABLET PO SCH (20:12)
[2017-05-29] MEDS: TraZODone HCL 100 MG TABLET PO SCH (20:12)
[2017-05-29 20:46] LABS: GLUCOSE,POINT OF CARE 155 MG/DL (70-110)
[2017-05-29] MEDS: ZOLPIDEM TARTRATE 10 MG TABLET PO PRN (21:02)
[2017-05-30 06:16] LABS: GLUCOSE,POINT OF CARE 108 MG/DL (70-110)
[2017-05-30] MEDS: MetFORMIN HCL 500 MG TABLET PO SCH ×2 (06:32→16:51)
[2017-05-30] MEDS: GlipiZIDE 5 MG TABLET PO SCH ×2 (06:32→16:40)
[2017-05-30] MEDS ORDERED: GLUCAGON,HUMAN RECOMBINANT 1 MG VIAL IM PRN (08:00)
[2017-05-30 08:49] VITALS: BP 107/63
[2017-05-30] MEDS: HALOPERIDOL 5 MG TABLET PO SCH ×2 (09:44→16:40)
[2017-05-30] MEDS: BENZTROPINE MESYLATE 1 MG TABLET PO SCH (09:44)
[2017-05-30] MEDS: CHOLECALCIFEROL (VIT D3) 1,000 UNITS TABLET PO SCH (09:44)
[2017-05-30] MEDS: FISH OIL/OMEGA-3 FATTY ACIDS 500 MG CAPSULE PO SCH (09:44)
[2017-05-30] MEDS: GABAPENTIN 300 MG CAPSULE PO SCH ×3 (09:44→16:40)
[2017-05-30] MEDS: DULoxetine HCL 60 MG CAPSULE PO SCH (09:44)
[2017-05-30 10:15] VITALS: BP 110/63
[2017-05-30] MEDS: IBUPROFEN 600 MG TABLET PO PRN (10:17)
[2017-05-30 11:47] LABS: GLUCOSE,POINT OF CARE 126 MG/DL (70-110)
[2017-05-30] MEDS: LORazepam 2 MG TABLET PO PRN (13:54)
[2017-05-30 16:08] VITALS: BP 115/71
[2017-05-30 16:43] LABS: GLUCOSE,POINT OF CARE 170 MG/DL (70-110)
[2017-05-30] MEDS: HALOPERIDOL 10 MG TABLET PO SCH (20:43)
[2017-05-30] MEDS: TraZODone HCL 100 MG TABLET PO SCH (20:44)
[2017-05-30 20:57] LABS: GLUCOSE,POINT OF CARE 162 MG/DL (70-110)
[2017-05-31 06:28] LABS: GLUCOSE,POINT OF CARE 104 MG/DL (70-110)
[2017-05-31] MEDS: MetFORMIN HCL 500 MG TABLET PO SCH ×2 (06:34→16:52)
[2017-05-31] MEDS: GlipiZIDE 5 MG TABLET PO SCH ×2 (06:34→16:22)
[2017-05-31 07:07] VITALS: BP 108/66
[2017-05-31 08:32] VITALS: BP 103/55
[2017-05-31] MEDS: BENZTROPINE MESYLATE 1 MG TABLET PO SCH (10:22)
[2017-05-31] MEDS: FISH OIL/OMEGA-3 FATTY ACIDS 500 MG CAPSULE PO SCH (10:22)
[2017-05-31] MEDS: GABAPENTIN 300 MG CAPSULE PO SCH ×3 (10:22→16:22)
[2017-05-31] MEDS: HALOPERIDOL 5 MG TABLET PO SCH ×2 (10:22→16:22)
[2017-05-31] MEDS: DULoxetine HCL 60 MG CAPSULE PO SCH (10:22)
[2017-05-31] MEDS: CHOLECALCIFEROL (VIT D3) 1,000 UNITS TABLET PO SCH (10:22)
[2017-05-31] MEDS: IBUPROFEN 600 MG TABLET PO PRN ×2 (10:30→17:55)
[2017-05-31 11:37] LABS: GLUCOSE,POINT OF CARE 196 MG/DL (70-110)
[2017-05-31] MEDS: INSULIN ASPART 100 UNITS/ML SQ PRN (12:37)
[2017-05-31 16:15] VITALS: BP 132/74
[2017-05-31 16:42] LABS: GLUCOSE,POINT OF CARE 163 MG/DL (70-110)
[2017-05-31] MEDS: LORazepam 2 MG TABLET PO PRN (17:55)
[2017-05-31] MEDS: HALOPERIDOL 10 MG TABLET PO SCH (20:27)
[2017-05-31] MEDS: TraZODone HCL 100 MG TABLET PO SCH (20:27)
[2017-05-31 20:52] LABS: GLUCOSE,POINT OF CARE 109 MG/DL (70-110)
[2017-06-01] MEDS: MetFORMIN HCL 500 MG TABLET PO SCH ×2 (06:50→16:52)
[2017-06-01] MEDS: GlipiZIDE 5 MG TABLET PO SCH ×2 (06:50→16:38)
[2017-06-01 06:52] LABS: GLUCOSE,POINT OF CARE 104 MG/DL (70-110)
[2017-06-01 08:35] VITALS: BP 103/57
[2017-06-01] MEDS: CHOLECALCIFEROL (VIT D3) 1,000 UNITS TABLET PO SCH (08:44)
[2017-06-01] MEDS: DULoxetine HCL 60 MG CAPSULE PO SCH (08:44)
[2017-06-01] MEDS: GABAPENTIN 300 MG CAPSULE PO SCH ×3 (08:44→16:38)
[2017-06-01] MEDS: BENZTROPINE MESYLATE 1 MG TABLET PO SCH (08:45)
[2017-06-01] MEDS: HALOPERIDOL 5 MG TABLET PO SCH ×2 (08:45→16:39)
[2017-06-01] MEDS: IBUPROFEN 600 MG TABLET PO PRN ×2 (08:45→16:39)
[2017-06-01] MEDS: FISH OIL/OMEGA-3 FATTY ACIDS 500 MG CAPSULE PO SCH (08:45)
[2017-06-01 09:45] VITALS: BP 110/62
[2017-06-01 11:53] LABS: GLUCOSE,POINT OF CARE 148 MG/DL (70-110)
[2017-06-01 16:27] VITALS: BP 116/69
[2017-06-01 16:47] LABS: GLUCOSE,POINT OF CARE 162 MG/DL (70-110)
[2017-06-01] MEDS: LORazepam 2 MG TABLET PO PRN (18:29)
[2017-06-01] MEDS: HALOPERIDOL 5 MG TABLET PO PRN (18:29)
[2017-06-01] MEDS: HALOPERIDOL 10 MG TABLET PO SCH (20:39)
[2017-06-01] MEDS: TraZODone HCL 100 MG TABLET PO SCH (20:39)
[2017-06-01 21:07] LABS: GLUCOSE,POINT OF CARE 94 MG/DL (70-110)
[2017-06-02] MEDS: MetFORMIN HCL 500 MG TABLET PO SCH ×2 (06:31→16:17)
[2017-06-02] MEDS: GlipiZIDE 5 MG TABLET PO SCH ×2 (06:31→16:18)
[2017-06-02 06:32] LABS: GLUCOSE,POINT OF CARE 90 MG/DL (70-110)
[2017-06-02 06:55] VITALS: BP 107/77
[2017-06-02] MEDS: GABAPENTIN 300 MG CAPSULE PO SCH ×3 (08:41→16:17)
[2017-06-02] MEDS: HALOPERIDOL 5 MG TABLET PO SCH ×2 (08:41→16:17)
[2017-06-02] MEDS: FISH OIL/OMEGA-3 FATTY ACIDS 500 MG CAPSULE PO SCH (08:41)
[2017-06-02] MEDS: BENZTROPINE MESYLATE 1 MG TABLET PO SCH (08:42)
[2017-06-02] MEDS: CHOLECALCIFEROL (VIT D3) 1,000 UNITS TABLET PO SCH (08:42)
[2017-06-02] MEDS: DULoxetine HCL 60 MG CAPSULE PO SCH (08:42)
[2017-06-02 08:43] VITALS: BP 113/68
[2017-06-02] MEDS: IBUPROFEN 600 MG TABLET PO PRN (08:43)
[2017-06-02 12:22] LABS: GLUCOSE,POINT OF CARE 88 MG/DL (70-110)
[2017-06-02 16:12] LABS: GLUCOSE COMMENT 1 Received Meds; GLUCOSE,POINT OF CARE 169 MG/DL (70-110)
[2017-06-02] MEDS: INSULIN ASPART 100 UNITS/ML SQ PRN ×2 (16:18→20:50)
[2017-06-02 16:22] VITALS: BP 110/76
[2017-06-02] MEDS: TraZODone HCL 100 MG TABLET PO SCH (20:09)
[2017-06-02] MEDS: HALOPERIDOL 10 MG TABLET PO SCH (20:09)
[2017-06-02 20:37] LABS: GLUCOSE,POINT OF CARE 142 MG/DL (70-110)
[2017-06-03] MEDS: GlipiZIDE 5 MG TABLET PO SCH ×2 (06:16→16:56)
[2017-06-03] MEDS: MetFORMIN HCL 500 MG TABLET PO SCH ×2 (06:16→16:56)
[2017-06-03 06:22] LABS: GLUCOSE,POINT OF CARE 140 MG/DL (70-110)
[2017-06-03] MEDS: FISH OIL/OMEGA-3 FATTY ACIDS 500 MG CAPSULE PO SCH (08:10)
[2017-06-03] MEDS: GABAPENTIN 300 MG CAPSULE PO SCH ×3 (08:10→16:57)
[2017-06-03] MEDS: LORazepam 2 MG TABLET PO PRN ×2 (08:10→15:16)
[2017-06-03] MEDS: CHOLECALCIFEROL (VIT D3) 1,000 UNITS TABLET PO SCH (08:10)
[2017-06-03] MEDS: DULoxetine HCL 60 MG CAPSULE PO SCH (08:10)
[2017-06-03] MEDS: HALOPERIDOL 5 MG TABLET PO SCH ×2 (08:10→16:57)
[2017-06-03] MEDS: BENZTROPINE MESYLATE 1 MG TABLET PO SCH (08:10)
[2017-06-03 08:30] VITALS: BP 114/70
[2017-06-03] MEDS: ACETAMINOPHEN 325 MG TABLET PO PRN (09:56)
[2017-06-03 11:27] LABS: GLUCOSE,POINT OF CARE 85 MG/DL (70-110)
[2017-06-03 16:09] VITALS: BP 114/75
[2017-06-03 17:02] LABS: GLUCOSE,POINT OF CARE 130 MG/DL (70-110)
[2017-06-03] MEDS: HALOPERIDOL 10 MG TABLET PO SCH (21:28)
[2017-06-03] MEDS: TraZODone HCL 100 MG TABLET PO SCH (21:28)
[2017-06-03 21:57] LABS: GLUCOSE,POINT OF CARE 184 MG/DL (70-110)
[2017-06-04] MEDS: MetFORMIN HCL 500 MG TABLET PO SCH ×2 (06:34→16:57)
[2017-06-04] MEDS: GlipiZIDE 5 MG TABLET PO SCH ×2 (06:34→16:30)
[2017-06-04 06:37] LABS: GLUCOSE,POINT OF CARE 122 MG/DL (70-110)
[2017-06-04 07:12] VITALS: BP 118/78
[2017-06-04] MEDS: LORazepam 2 MG TABLET PO PRN (08:11)
[2017-06-04] MEDS: BENZTROPINE MESYLATE 1 MG TABLET PO SCH (08:11)
[2017-06-04] MEDS: FISH OIL/OMEGA-3 FATTY ACIDS 500 MG CAPSULE PO SCH (08:11)
[2017-06-04] MEDS: DULoxetine HCL 60 MG CAPSULE PO SCH (08:11)
[2017-06-04] MEDS: HALOPERIDOL 5 MG TABLET PO SCH ×2 (08:11→16:30)
[2017-06-04] MEDS: GABAPENTIN 300 MG CAPSULE PO SCH ×3 (08:11→16:30)
[2017-06-04] MEDS: CHOLECALCIFEROL (VIT D3) 1,000 UNITS TABLET PO SCH (08:11)
[2017-06-04 08:30] VITALS: BP 99/66
[2017-06-04 11:23] LABS: GLUCOSE,POINT OF CARE 101 MG/DL (70-110)
[2017-06-04 16:00] VITALS: BP 110/77
[2017-06-04 16:37] LABS: GLUCOSE,POINT OF CARE 140 MG/DL (70-110)
[2017-06-04] MEDS: IBUPROFEN 600 MG TABLET PO PRN (18:13)
[2017-06-04] MEDS: TraZODone HCL 100 MG TABLET PO SCH (20:33)
[2017-06-04] MEDS: HALOPERIDOL 10 MG TABLET PO SCH (20:34)
[2017-06-04 21:28] LABS: GLUCOSE,POINT OF CARE 130 MG/DL (70-110)
[2017-06-05] MEDS: GlipiZIDE 5 MG TABLET PO SCH ×2 (06:34→16:20)
[2017-06-05 06:37] LABS: GLUCOSE,POINT OF CARE 95 MG/DL (70-110)
[2017-06-05] MEDS: MetFORMIN HCL 500 MG TABLET PO SCH ×2 (06:54→16:42)
[2017-06-05 08:23] VITALS: BP 122/77
[2017-06-05] MEDS: FISH OIL/OMEGA-3 FATTY ACIDS 500 MG CAPSULE PO SCH (09:33)
[2017-06-05] MEDS: DULoxetine HCL 60 MG CAPSULE PO SCH (09:33)
[2017-06-05] MEDS: GABAPENTIN 300 MG CAPSULE PO SCH ×3 (09:33→16:19)
[2017-06-05] MEDS: BENZTROPINE MESYLATE 1 MG TABLET PO SCH (09:34)
[2017-06-05] MEDS: IBUPROFEN 600 MG TABLET PO PRN ×2 (09:34→18:51)
[2017-06-05] MEDS: CHOLECALCIFEROL (VIT D3) 1,000 UNITS TABLET PO SCH (09:34)
[2017-06-05] MEDS: HALOPERIDOL 5 MG TABLET PO SCH ×2 (09:34→16:19)
[2017-06-05] MEDS: LORazepam 2 MG TABLET PO PRN ×2 (09:35→18:57)
[2017-06-05 11:46] LABS: GLUCOSE,POINT OF CARE 89 MG/DL (70-110)
[2017-06-05 16:31] VITALS: BP 100/74
[2017-06-05] MEDS: INSULIN ASPART 100 UNITS/ML SQ PRN (16:45)
[2017-06-05 17:27] LABS: GLUCOSE COMMENT 1 Received Meds; GLUCOSE,POINT OF CARE 164 MG/DL (70-110)
[2017-06-05 18:51] VITALS: BP 112/68
[2017-06-05 20:12] LABS: GLUCOSE,POINT OF CARE 82 MG/DL (70-110)
[2017-06-05] MEDS: TraZODone HCL 100 MG TABLET PO SCH (20:16)
[2017-06-05] MEDS: HALOPERIDOL 10 MG TABLET PO SCH (20:16)
[2017-06-06 06:02] LABS: GLUCOSE,POINT OF CARE 115 MG/DL (70-110)
[2017-06-06] MEDS: GlipiZIDE 5 MG TABLET PO SCH ×2 (06:38→16:35)
[2017-06-06] MEDS: MetFORMIN HCL 500 MG TABLET PO SCH ×2 (06:53→16:33)
[2017-06-06] MEDS: DULoxetine HCL 60 MG CAPSULE PO SCH (08:28)
[2017-06-06] MEDS: FISH OIL/OMEGA-3 FATTY ACIDS 500 MG CAPSULE PO SCH (08:28)
[2017-06-06] MEDS: BENZTROPINE MESYLATE 1 MG TABLET PO SCH (08:28)
[2017-06-06] MEDS: GABAPENTIN 300 MG CAPSULE PO SCH ×3 (08:28→16:33)
[2017-06-06] MEDS: HALOPERIDOL 5 MG TABLET PO SCH ×2 (08:28→16:34)
[2017-06-06] MEDS: CHOLECALCIFEROL (VIT D3) 1,000 UNITS TABLET PO SCH (08:28)
[2017-06-06 08:40] VITALS: BP 100/50
[2017-06-06 11:01] VITALS: BP 120/70
[2017-06-06] MEDS: IBUPROFEN 600 MG TABLET PO PRN (11:01)
[2017-06-06] MEDS: LORazepam 2 MG TABLET PO PRN ×2 (11:01→16:35)
[2017-06-06 12:12] LABS: GLUCOSE,POINT OF CARE 77 MG/DL (70-110)
[2017-06-06 17:07] LABS: GLUCOSE,POINT OF CARE 114 MG/DL (70-110)
[2017-06-06 17:34] VITALS: BP 124/65
[2017-06-06] MEDS: TraZODone HCL 100 MG TABLET PO SCH (20:50)
[2017-06-06] MEDS: HALOPERIDOL 10 MG TABLET PO SCH (20:51)
[2017-06-06 20:52] LABS: GLUCOSE,POINT OF CARE 89 MG/DL (70-110)
[2017-06-07 06:50] VITALS: BP 127/71
[2017-06-07 06:56] LABS: GLUCOSE,POINT OF CARE 107 MG/DL (70-110)
[2017-06-07] MEDS: MetFORMIN HCL 500 MG TABLET PO SCH ×2 (07:01→16:58)
[2017-06-07] MEDS: GlipiZIDE 5 MG TABLET PO SCH ×2 (07:01→16:10)
[2017-06-07 08:02] VITALS: BP 109/70
[2017-06-07] MEDS: BENZTROPINE MESYLATE 1 MG TABLET PO SCH (08:02)
[2017-06-07] MEDS: FISH OIL/OMEGA-3 FATTY ACIDS 500 MG CAPSULE PO SCH (08:02)
[2017-06-07] MEDS: HALOPERIDOL 5 MG TABLET PO SCH ×2 (08:02→16:10)
[2017-06-07] MEDS: LORazepam 2 MG TABLET PO PRN ×2 (08:02→20:10)
[2017-06-07] MEDS: CHOLECALCIFEROL (VIT D3) 1,000 UNITS TABLET PO SCH (08:02)
[2017-06-07] MEDS: GABAPENTIN 300 MG CAPSULE PO SCH ×3 (08:02→16:10)
[2017-06-07] MEDS: DULoxetine HCL 60 MG CAPSULE PO SCH (08:03)
[2017-06-07 11:32] LABS: GLUCOSE,POINT OF CARE 115 MG/DL (70-110)
[2017-06-07 16:04] VITALS: BP 105/66
[2017-06-07 17:06] LABS: GLUCOSE,POINT OF CARE 187 MG/DL (70-110)
[2017-06-07] MEDS: INSULIN ASPART 100 UNITS/ML SQ PRN (17:10)
[2017-06-07] MEDS: TraZODone HCL 100 MG TABLET PO SCH (20:10)
[2017-06-07] MEDS: HALOPERIDOL 10 MG TABLET PO SCH (20:10)
[2017-06-07 20:57] LABS: GLUCOSE,POINT OF CARE 131 MG/DL (70-110)
[2017-06-08 06:21] VITALS: BP 101/60
[2017-06-08] MEDS: MetFORMIN HCL 500 MG TABLET PO SCH ×2 (06:33→16:55)
[2017-06-08] MEDS: GlipiZIDE 5 MG TABLET PO SCH ×2 (06:33→16:12)
[2017-06-08 06:38] LABS: GLUCOSE,POINT OF CARE 95 MG/DL (70-110)
[2017-06-08] MEDS: BENZTROPINE MESYLATE 1 MG TABLET PO SCH (08:04)
[2017-06-08] MEDS: HALOPERIDOL 5 MG TABLET PO SCH ×2 (08:05→16:12)
[2017-06-08] MEDS: FISH OIL/OMEGA-3 FATTY ACIDS 500 MG CAPSULE PO SCH (08:05)
[2017-06-08] MEDS: CHOLECALCIFEROL (VIT D3) 1,000 UNITS TABLET PO SCH (08:05)
[2017-06-08] MEDS: GABAPENTIN 300 MG CAPSULE PO SCH ×3 (08:05→16:12)
[2017-06-08] MEDS: DULoxetine HCL 60 MG CAPSULE PO SCH (08:05)
[2017-06-08 09:06] VITALS: BP 112/75
[2017-06-08 11:13] LABS: GLUCOSE,POINT OF CARE 112 MG/DL (70-110)
[2017-06-08] MEDS: LORazepam 2 MG TABLET PO PRN (16:12)
[2017-06-08 16:32] LABS: GLUCOSE,POINT OF CARE 165 MG/DL (70-110)
[2017-06-08 16:41] VITALS: BP 116/79
[2017-06-08] MEDS: INSULIN ASPART 100 UNITS/ML SQ PRN ×2 (16:53→20:42)
[2017-06-08] MEDS: HALOPERIDOL 10 MG TABLET PO SCH (20:15)
[2017-06-08] MEDS: TraZODone HCL 100 MG TABLET PO SCH (20:15)
[2017-06-08 20:43] LABS: GLUCOSE,POINT OF CARE 168 MG/DL (70-110)
[2017-06-09 05:13] VITALS: BP 123/81
[2017-06-09] MEDS: IBUPROFEN 600 MG TABLET PO PRN (05:14)
[2017-06-09] MEDS: GlipiZIDE 5 MG TABLET PO SCH ×2 (06:40→16:32)
[2017-06-09] MEDS: MetFORMIN HCL 500 MG TABLET PO SCH ×2 (06:40→16:32)
[2017-06-09 06:47] LABS: GLUCOSE,POINT OF CARE 101 MG/DL (70-110)
[2017-06-09] MEDS: DULoxetine HCL 60 MG CAPSULE PO SCH (08:06)
[2017-06-09] MEDS: GABAPENTIN 300 MG CAPSULE PO SCH ×3 (08:06→16:32)
[2017-06-09] MEDS: FISH OIL/OMEGA-3 FATTY ACIDS 500 MG CAPSULE PO SCH (08:06)
[2017-06-09] MEDS: CHOLECALCIFEROL (VIT D3) 1,000 UNITS TABLET PO SCH (08:06)
[2017-06-09] MEDS: BENZTROPINE MESYLATE 1 MG TABLET PO SCH (08:06)
[2017-06-09] MEDS: HALOPERIDOL 5 MG TABLET PO SCH ×2 (08:06→16:32)
[2017-06-09 10:47] LABS: GLUCOSE,POINT OF CARE 96 MG/DL (70-110)
[2017-06-09] MEDS: LORazepam 2 MG TABLET PO PRN ×2 (11:49→19:30)
[2017-06-09 16:00] VITALS: BP 120/83
[2017-06-09 16:37] LABS: GLUCOSE COMMENT 1 Received Meds; GLUCOSE,POINT OF CARE 186 MG/DL (70-110)
[2017-06-09] MEDS: INSULIN ASPART 100 UNITS/ML SQ PRN (16:45)
[2017-06-09 20:17] LABS: GLUCOSE,POINT OF CARE 136 MG/DL (70-110)
[2017-06-09] MEDS: HALOPERIDOL 10 MG TABLET PO SCH (20:26)
[2017-06-09] MEDS: TraZODone HCL 100 MG TABLET PO SCH (20:27)
[2017-06-10 03:00] VITALS: BP 127/88
[2017-06-10] MEDS: MetFORMIN HCL 500 MG TABLET PO SCH ×2 (06:49→17:00)
[2017-06-10] MEDS: GlipiZIDE 5 MG TABLET PO SCH ×2 (06:49→16:06)
[2017-06-10 06:53] LABS: GLUCOSE,POINT OF CARE 97 MG/DL (70-110)
[2017-06-10 08:38] VITALS: BP 116/74
[2017-06-10] MEDS: CHOLECALCIFEROL (VIT D3) 1,000 UNITS TABLET PO SCH (08:52)
[2017-06-10] MEDS: FISH OIL/OMEGA-3 FATTY ACIDS 500 MG CAPSULE PO SCH (08:52)
[2017-06-10] MEDS: BENZTROPINE MESYLATE 1 MG TABLET PO SCH (08:52)
[2017-06-10] MEDS: DULoxetine HCL 60 MG CAPSULE PO SCH (08:52)
[2017-06-10] MEDS: GABAPENTIN 300 MG CAPSULE PO SCH ×3 (08:52→16:06)
[2017-06-10] MEDS: HALOPERIDOL 5 MG TABLET PO SCH ×2 (08:55→16:06)
[2017-06-10] MEDS: INSULIN ASPART 100 UNITS/ML SQ PRN ×3 (12:02→21:21)
[2017-06-10 12:13] LABS: GLUCOSE,POINT OF CARE 168 MG/DL (70-110)
[2017-06-10] MEDS: LORazepam 2 MG TABLET PO PRN ×2 (14:43→20:43)
[2017-06-10 16:08] VITALS: BP 116/62
[2017-06-10 16:57] LABS: GLUCOSE,POINT OF CARE 160 MG/DL (70-110)
[2017-06-10] MEDS: HALOPERIDOL 10 MG TABLET PO SCH (20:27)
[2017-06-10] MEDS: TraZODone HCL 100 MG TABLET PO SCH (20:27)
[2017-06-10 21:11] LABS: GLUCOSE,POINT OF CARE 165 MG/DL (70-110)
[2017-06-10] MEDS: ZOLPIDEM TARTRATE 10 MG TABLET PO PRN (23:58)
[2017-06-11] MEDS: GlipiZIDE 5 MG TABLET PO SCH ×2 (06:52→16:08)
[2017-06-11] MEDS: MetFORMIN HCL 500 MG TABLET PO SCH ×2 (06:52→16:08)
[2017-06-11 07:07] LABS: GLUCOSE,POINT OF CARE 92 MG/DL (70-110)
[2017-06-11 07:09] VITALS: BP 110/60
[2017-06-11 08:20] VITALS: BP 112/72
[2017-06-11] MEDS: FISH OIL/OMEGA-3 FATTY ACIDS 500 MG CAPSULE PO SCH (09:50)
[2017-06-11] MEDS: BENZTROPINE MESYLATE 1 MG TABLET PO SCH (09:50)
[2017-06-11] MEDS: GABAPENTIN 300 MG CAPSULE PO SCH ×3 (09:50→16:07)
[2017-06-11] MEDS: HALOPERIDOL 5 MG TABLET PO SCH ×2 (09:50→16:08)
[2017-06-11] MEDS: DULoxetine HCL 60 MG CAPSULE PO SCH (09:50)
[2017-06-11] MEDS: CHOLECALCIFEROL (VIT D3) 1,000 UNITS TABLET PO SCH (09:51)
[2017-06-11 11:57] LABS: GLUCOSE,POINT OF CARE 105 MG/DL (70-110)
[2017-06-11 16:04] VITALS: BP 114/70
[2017-06-11] MEDS: LORazepam 2 MG TABLET PO PRN (16:08)
[2017-06-11 16:12] LABS: GLUCOSE COMMENT 1 Received Meds; GLUCOSE,POINT OF CARE 177 MG/DL (70-110)
[2017-06-11] MEDS: INSULIN ASPART 100 UNITS/ML SQ PRN ×2 (16:38→21:00)
[2017-06-11] MEDS: TraZODone HCL 100 MG TABLET PO SCH (20:25)
[2017-06-11] MEDS: HALOPERIDOL 10 MG TABLET PO SCH (20:25)
[2017-06-11 20:27] LABS: GLUCOSE COMMENT 1 Received Meds; GLUCOSE,POINT OF CARE 240 MG/DL (70-110)
[2017-06-12] MEDS: GlipiZIDE 5 MG TABLET PO SCH ×2 (06:43→16:33)
[2017-06-12] MEDS: MetFORMIN HCL 500 MG TABLET PO SCH ×2 (06:43→16:52)
[2017-06-12 06:49] VITALS: BP 110/68
[2017-06-12 06:58] LABS: GLUCOSE,POINT OF CARE 111 MG/DL (70-110)
[2017-06-12] MEDS: GABAPENTIN 300 MG CAPSULE PO SCH ×3 (08:30→16:33)
[2017-06-12] MEDS: FISH OIL/OMEGA-3 FATTY ACIDS 500 MG CAPSULE PO SCH (08:30)
[2017-06-12] MEDS: BENZTROPINE MESYLATE 1 MG TABLET PO SCH (08:30)
[2017-06-12] MEDS: CHOLECALCIFEROL (VIT D3) 1,000 UNITS TABLET PO SCH (08:31)
[2017-06-12] MEDS: DULoxetine HCL 60 MG CAPSULE PO SCH (08:31)
[2017-06-12] MEDS: HALOPERIDOL 5 MG TABLET PO SCH ×2 (08:31→16:33)
[2017-06-12 08:38] VITALS: BP 108/65
[2017-06-12] MEDS: DOCUSATE SODIUM 250 MG CAPSULE PO SCH (10:26)
[2017-06-12 11:22] LABS: GLUCOSE,POINT OF CARE 166 MG/DL (70-110)
[2017-06-12] MEDS: INSULIN ASPART 100 UNITS/ML SQ PRN ×2 (11:29→20:17)
[2017-06-12] MEDS: LORazepam 2 MG TABLET PO PRN (13:17)
[2017-06-12 16:13] VITALS: BP 121/66
[2017-06-12 16:32] LABS: GLUCOSE,POINT OF CARE 135 MG/DL (70-110)
[2017-06-12] MEDS: TraZODone HCL 100 MG TABLET PO SCH (20:18)
[2017-06-12] MEDS: HALOPERIDOL 10 MG TABLET PO SCH (20:18)
[2017-06-12 20:22] LABS: GLUCOSE COMMENT 1 Received Meds; GLUCOSE,POINT OF CARE 163 MG/DL (70-110)
[2017-06-12] MEDS: ZOLPIDEM TARTRATE 10 MG TABLET PO PRN (21:06)
[2017-06-13 06:05] VITALS: BP 115/70
[2017-06-13 06:18] LABS: GLUCOSE,POINT OF CARE 251 MG/DL (70-110)
[2017-06-13] MEDS: MetFORMIN HCL 500 MG TABLET PO SCH (06:46)
[2017-06-13] MEDS: GlipiZIDE 5 MG TABLET PO SCH (06:46)
[2017-06-13] MEDS: INSULIN ASPART 100 UNITS/ML SQ PRN (06:53)
[2017-06-13] MEDS: FISH OIL/OMEGA-3 FATTY ACIDS 500 MG CAPSULE PO SCH (08:42)
[2017-06-13] MEDS: GABAPENTIN 300 MG CAPSULE PO SCH ×2 (08:42→12:06)
[2017-06-13] MEDS: DOCUSATE SODIUM 250 MG CAPSULE PO SCH (08:43)
[2017-06-13] MEDS: CHOLECALCIFEROL (VIT D3) 1,000 UNITS TABLET PO SCH (08:43)
[2017-06-13] MEDS: HALOPERIDOL 5 MG TABLET PO SCH (08:43)
[2017-06-13] MEDS: BENZTROPINE MESYLATE 1 MG TABLET PO SCH (08:43)
[2017-06-13] MEDS: DULoxetine HCL 60 MG CAPSULE PO SCH (08:43)
[2017-06-13 09:26] VITALS: BP 105/65
[2017-06-13 10:52] LABS: GLUCOSE,POINT OF CARE 136 MG/DL (70-110)
[2017-06-13] MEDS ORDERED: DOCU250C91 PO (14:42)
== END 2017-06-13 16:00 | disposition home or self-care (01) | DRG 885 ==
LOC: B3A 17:09
DX: F25.0 Schizoaffective disorder, bipolar type (principal); R45.851 Suicidal ideations; E11.65 Type 2 diabetes mellitus with hyperglycemia; E55.9 Vitamin D deficiency, unspecified; E66.9 Obesity, unspecified; E78.1 Pure hyperglyceridemia; E78.5 Hyperlipidemia, unspecified; G47.00 Insomnia, unspecified; M79.601 Pain in right arm; K59.00 Constipation, unspecified; Z79.899 Other long term (current) drug therapy; Z90.49 Acquired absence of other specified parts of digestive tract; Z91.5 Personal history of self-harm; Z98.51 Tubal ligation status
CPT/HCPCS: 82962; 84439; 84443; 87081

== ENCOUNTER 2017-10-06 11:41 | Inpatient (IN) | payer MEDICARE, MEDICAID ==
[~2017-10-06] VITALS: Ht 160 cm; Wt 81.5 kg
[~2017-10-06 11:41] MED LIST changes: +DOCU250C91 PO; -FERR-89 PO; -LOVA20 PO
[2017-10-06 12:48] VITALS: BP 102/69
[2017-10-06] MEDS ORDERED: HALOPERIDOL 5 MG TABLET PO PRN (13:15)
[2017-10-06] MEDS ORDERED: QUEtiapine FUMARATE 100 MG TABLET PO PRN (13:15)
[2017-10-06] MEDS ORDERED: ZOLPIDEM TARTRATE 10 MG TABLET PO PRN (13:15)
[2017-10-06] MEDS: GABAPENTIN 300 MG CAPSULE PO SCH ×2 (14:27→16:29)
[2017-10-06 15:27] LABS: GLUCOSE,POINT OF CARE 136 MG/DL (70-110)
[2017-10-06 16:00] VITALS: BP 102/79
[2017-10-06 16:05] VITALS: BP 102/79
[2017-10-06] MEDS: GlipiZIDE 10 MG TABLET PO SCH (16:29)
[2017-10-06] MEDS: MetFORMIN HCL 500 MG TABLET PO SCH (16:29)
[2017-10-06] MEDS: HALOPERIDOL 5 MG TABLET PO SCH (16:29)
[2017-10-06 16:30] VITALS: BP 110/76
[2017-10-06] MEDS: LOVASTATIN 20 MG TABLET PO SCH (16:30)
[2017-10-06] MEDS: LORazepam 2 MG TABLET PO PRN (16:30)
[2017-10-06] MEDS: HALOPERIDOL 10 MG TABLET PO SCH (20:28)
[2017-10-06] MEDS: TraZODone HCL 100 MG TABLET PO SCH (20:28)
[2017-10-07 05:51] VITALS: BP 106/62
[2017-10-07] MEDS: MetFORMIN HCL 500 MG TABLET PO SCH ×2 (06:49→16:31)
[2017-10-07] MEDS: GlipiZIDE 10 MG TABLET PO SCH ×2 (06:49→16:31)
[2017-10-07 08:19] LABS: BASOPHILS % (AUTO) 0.3 % (0.0-2.0); EOSINOPHILS % (AUTO) 2.1 % (1.0-6.0); HEMATOCRIT 38.7 % (36-46); HEMOGLOBIN 13.2 g/dL (12.0-16.0); LYMPHOCYTES # (AUTO) 2.4 K/uL (1.0-4.8); MEAN CORPUSCULAR HEMOGLOBIN 29.3 pg (26.0-34.0); MEAN CORPUSCULAR VOLUME 86 fL (80-100); MONOCYTES # (AUTO) 0.5 K/uL (0.1-1.0); MONOCYTES % (AUTO) 6.6 % (2.0-9.0); NEUTROPHILS # (AUTO) 4.3 K/uL (1.8-7.7); PLATELET COUNT (AUTO) 181 K/uL (150-450); RED BLOOD CELL COUNT(AUTO) 4.49 MIL/uL (4.00-5.20); RED CELL DISTRIBUTION WIDTH 12.7 % (11.5-14.5); WHITE BLOOD COUNT (AUTO) 7.3 K/uL (4.5-11.0)
[2017-10-07 08:22] VITALS: BP 112/77
[2017-10-07] MEDS ORDERED: ALBUTEROL SULFATE HFA 90 MCG/PUFF 8 GM INHALER IH PRN (08:30)
[2017-10-07] MEDS ORDERED: LOPERAMIDE HCL 2 MG CAPSULE PO PRN (08:30)
[2017-10-07] MEDS ORDERED: ONDANSETRON HCL 4 MG TABLET PO PRN (08:30)
[2017-10-07] MEDS ORDERED: BACITRACIN 28.4 GM OINTMENT TP PRN (08:30)
[2017-10-07] MEDS ORDERED: MAGNESIUM HYDROXIDE SUSPENSION 30 ML UDCUP PO PRN (08:30)
[2017-10-07] MEDS ORDERED: BENZOCAINE/MENTHOL LOZENGE MM PRN (08:30)
[2017-10-07] MEDS ORDERED: MAG HYDROX/AL HYDROX/SIMETH ES 30 ML SUSPENSION UDCUP PO PRN (08:30)
[2017-10-07] MEDS ORDERED: CloNIDine HCL 0.1 MG TABLET PO PRN (08:30)
[2017-10-07] MEDS ORDERED: PETROLATUM,WHITE 71 GM JELLY TP PRN (08:30)
[2017-10-07] MEDS ORDERED: ACETAMINOPHEN 325 MG TABLET PO PRN (08:30)
[2017-10-07] MEDS ORDERED: IBUPROFEN 600 MG TABLET PO PRN (08:30)
[2017-10-07 08:58] LABS: HEMOGLOBIN A1C 10.7 % (4.5-6.2)
[2017-10-07] MEDS: DULoxetine HCL 30 MG CAPSULE PO SCH (09:00)
[2017-10-07] MEDS: DOCUSATE SODIUM 250 MG CAPSULE PO SCH (09:00)
[2017-10-07] MEDS: PIOGLITAZONE HCL 30 MG TABLET PO SCH (09:00)
[2017-10-07] MEDS: GABAPENTIN 300 MG CAPSULE PO SCH ×3 (09:00→16:31)
[2017-10-07] MEDS: BENZTROPINE MESYLATE 1 MG TABLET PO SCH (09:00)
[2017-10-07] MEDS: HALOPERIDOL 5 MG TABLET PO SCH ×2 (09:00→16:30)
[2017-10-07] MEDS: CHOLECALCIFEROL (VIT D3) 1,000 UNITS TABLET PO SCH (09:00)
[2017-10-07 09:27] LABS: ALANINE AMINOTRANSFERASE 60 U/L (12-78); ALBUMIN 3.7 g/dL (3.4-5.0); ANION GAP 9 mmol/L (8-16); ASPARTATE AMINOTRANSFERASE 33 U/L (15-37); BILIRUBIN,TOTAL 0.4 mg/dL (0.1-1.0); CALCIUM, TOTAL 8.9 mg/dL (8.8-10.5); CARBON DIOXIDE 26 mmol/L (22-29); CHLORIDE 103 mmol/L (98-107); CHOL/HDL RATIO 6.1 (3.9-5.7); CREATININE 0.78 mg/dL (0.60-1.30); GLOMERULAR FILTR. RATE CALC > 60 mL/min (>60); POTASSIUM 4.4 mmol/L (3.5-5.1); SODIUM SERUM 138 mmol/L (136-145); THYROID STIMULATING HORMONE 1.16 uIU/mL (0.36-3.74); TOTAL PROTEIN, SERUM 6.5 g/dL (6.4-8.2); UREA NITROGEN, BLOOD 7 mg/dL (7-18)
[2017-10-07 12:22] LABS: GLUCOSE,POINT OF CARE 213 MG/DL (70-110)
[2017-10-07] MEDS ORDERED: GLUCAGON,HUMAN RECOMBINANT 1 MG VIAL IM PRN (13:00)
[2017-10-07 16:02] VITALS: BP 111/71
[2017-10-07] MEDS: LORazepam 2 MG TABLET PO PRN (16:10)
[2017-10-07 16:16] LABS: GLUCOSE,POINT OF CARE 193 MG/DL (70-110)
[2017-10-07] MEDS: LOVASTATIN 20 MG TABLET PO SCH (16:31)
[2017-10-07] MEDS: INSULIN ASPART 100 UNITS/ML SQ PRN ×2 (16:56→20:59)
[2017-10-07 20:22] LABS: GLUCOSE,POINT OF CARE 313 MG/DL (70-110)
[2017-10-07] MEDS: HALOPERIDOL 10 MG TABLET PO SCH (20:32)
[2017-10-07] MEDS: TraZODone HCL 100 MG TABLET PO SCH (20:32)
[2017-10-08 05:34] VITALS: BP 108/70
[2017-10-08 06:17] LABS: GLUCOSE,POINT OF CARE 232 MG/DL (70-110)
[2017-10-08] MEDS: MetFORMIN HCL 500 MG TABLET PO SCH ×2 (06:35→16:56)
[2017-10-08] MEDS: GlipiZIDE 10 MG TABLET PO SCH ×2 (06:35→16:25)
[2017-10-08 08:05] VITALS: BP 105/71
[2017-10-08] MEDS: GABAPENTIN 300 MG CAPSULE PO SCH ×3 (08:50→16:25)
[2017-10-08] MEDS: HALOPERIDOL 5 MG TABLET PO SCH ×2 (08:50→16:25)
[2017-10-08] MEDS: DULoxetine HCL 30 MG CAPSULE PO SCH (08:50)
[2017-10-08] MEDS: BENZTROPINE MESYLATE 1 MG TABLET PO SCH (08:50)
[2017-10-08] MEDS: PIOGLITAZONE HCL 30 MG TABLET PO SCH (08:50)
[2017-10-08] MEDS: CHOLECALCIFEROL (VIT D3) 1,000 UNITS TABLET PO SCH (08:50)
[2017-10-08] MEDS: DOCUSATE SODIUM 250 MG CAPSULE PO SCH (08:50)
[2017-10-08] MEDS ORDERED: OMEGA-3/DHA/EPA/FISH OIL 1,000 MG CAPSULE PO SCH (09:00)
[2017-10-08 11:12] LABS: GLUCOSE,POINT OF CARE 209 MG/DL (70-110)
[2017-10-08 12:45] VITALS: BP 111/66
[2017-10-08] MEDS: LORazepam 2 MG TABLET PO PRN (12:49)
[2017-10-08 16:03] VITALS: BP 114/75
[2017-10-08] MEDS: LOVASTATIN 20 MG TABLET PO SCH (16:25)
[2017-10-08 16:32] LABS: GLUCOSE,POINT OF CARE 162 MG/DL (70-110)
[2017-10-08] MEDS: INSULIN ASPART 100 UNITS/ML SQ PRN (17:04)
[2017-10-08] MEDS ORDERED: TRAZ-147 PO (17:11)
[2017-10-08] MEDS ORDERED: GABA-531 PO (17:11)
[2017-10-08] MEDS ORDERED: DULO30CA2 PO (17:11)
[2017-10-08] MEDS ORDERED: BENZ1TAB10 PO (17:11)
[2017-10-08] MEDS ORDERED: HALO5TAB23 PO (17:11)
[2017-10-08] MEDS ORDERED: HALO10TA15 PO (17:11)
[2017-10-08] MEDS ORDERED: GLIP10 PO (17:23)
[2017-10-08] MEDS ORDERED: METF10002 PO (17:23)
[2017-10-08] MEDS ORDERED: PIOG30TA10 PO (17:23)
[2017-10-08] MEDS ORDERED: DOCU250C91 PO (17:23)
[2017-10-08] MEDS ORDERED: OMEG-135 PO (17:23)
[2017-10-08] MEDS ORDERED: CHOL10002 PO (17:23)
[2017-10-08] MEDS ORDERED: LOVA40TA2 PO (17:23)
== END 2017-10-08 18:40 | disposition home or self-care (01) | DRG 885 ==
LOC: B2S 13:02 → B2X 17:16
DX: F25.1 Schizoaffective disorder, depressive type (principal); E11.65 Type 2 diabetes mellitus with hyperglycemia; E55.9 Vitamin D deficiency, unspecified; E66.9 Obesity, unspecified; E78.1 Pure hyperglyceridemia; K21.9 Gastro-esophageal reflux disease without esophagitis; K59.00 Constipation, unspecified; Z90.49 Acquired absence of other specified parts of digestive tract; Z98.51 Tubal ligation status; S61.512A Laceration without foreign body of left wrist, initial encounter; W45.8XXA Other foreign body or object entering through skin, initial encounter; Y93.89 Activity, other specified; Y92.89 Other specified places as the place of occurrence of the external cause; Y99.8 Other external cause status; F60.3 Borderline personality disorder
CPT/HCPCS: 82962; 83036; 84439; 84443

== ENCOUNTER 2017-10-13 12:50 | Inpatient (IN) | payer OTHER, MEDICAID ==
[~2017-10-13] VITALS: Ht 160 cm; Wt 81.2 kg
[~2017-10-13 12:50] MED LIST changes: +CHOL10002 PO; +DULO30CA2 PO; -DULO60CA44 PO; +GLIP10 PO; -GLIP5 PO; -HALO10 PO; +HALO10TA15 PO; -HALO5 PO; +HALO5TAB23 PO; +LOVA40TA2 PO; +METF10002 PO; -METF500T4 PO; +OMEG-135 PO; -OMEG1CAP6 PO; +PIOG30TA10 PO; -VITAD1000 PO
[2017-10-13 14:02] VITALS: BP 115/87
[2017-10-13 16:05] VITALS: BP 120/76
[2017-10-13] MEDS: HALOPERIDOL 5 MG TABLET PO SCH (16:58)
[2017-10-13] MEDS: GABAPENTIN 300 MG CAPSULE PO SCH (16:58)
[2017-10-13] MEDS: LORazepam 2 MG TABLET PO PRN (16:59)
[2017-10-13] MEDS ORDERED: INFLUENZA VIRUS VACCINE QVS 2017-18 (3YR+)/PF 60 MCG/0.5 ML SYRINGE IM ONE (17:15)
[2017-10-13] MEDS ORDERED: -PHARMACY VACCINE NOTE- MISC ONE ×2 (17:15)
[2017-10-13 17:22] LABS: GLUCOSE,POINT OF CARE 260 MG/DL (70-110)
[2017-10-13] MEDS ORDERED: GLUCAGON,HUMAN RECOMBINANT 1 MG VIAL IM PRN (18:00)
[2017-10-13] MEDS: HALOPERIDOL 10 MG TABLET PO SCH (20:31)
[2017-10-13] MEDS: TraZODone HCL 100 MG TABLET PO SCH (20:31)
[2017-10-13 20:43] LABS: GLUCOSE,POINT OF CARE 224 MG/DL (70-110)
[2017-10-14 06:01] LABS: GLUCOSE,POINT OF CARE 222 MG/DL (70-110)
[2017-10-14] MEDS: MetFORMIN HCL 500 MG TABLET PO SCH ×2 (06:22→17:25)
[2017-10-14] MEDS: INSULIN ASPART 100 UNITS/ML SQ PRN (06:22)
[2017-10-14] MEDS: GlipiZIDE 10 MG TABLET PO SCH ×2 (06:22→17:26)
[2017-10-14 06:59] VITALS: BP 121/63
[2017-10-14 07:57] LABS: BASOPHILS % (AUTO) 0.4 % (0.0-2.0); EOSINOPHILS % (AUTO) 6.6 % (1.0-6.0); HEMATOCRIT 37.9 % (36-46); HEMOGLOBIN 12.9 g/dL (12.0-16.0); LYMPHOCYTES # (AUTO) 2.5 K/uL (1.0-4.8); LYMPHOCYTES % (AUTO) 35.1 % (22.0-44.0); MEAN CORPUSCULAR HEMOGLOBIN 29.3 pg (26.0-34.0); MEAN CORPUSCULAR HGB CONC 34.1 G/dL (31.0-37.0); MEAN CORPUSCULAR VOLUME 86 fL (80-100); MONOCYTES # (AUTO) 0.5 K/uL (0.1-1.0); MONOCYTES % (AUTO) 7.2 % (2.0-9.0); NEUTROPHILS # (AUTO) 3.6 K/uL (1.8-7.7); NEUTROPHILS % (AUTO) 50.7 % (40.0-70.0); PLATELET COUNT (AUTO) 199 K/uL (150-450); RED BLOOD CELL COUNT(AUTO) 4.41 MIL/uL (4.00-5.20)
[2017-10-14 08:18] LABS: HEMOGLOBIN A1C 10.5 % (4.5-6.2)
[2017-10-14 08:31] LABS: ALANINE AMINOTRANSFERASE 66 U/L (12-78); ALBUMIN 3.6 g/dL (3.4-5.0); ANION GAP 9 mmol/L (8-16); ASPARTATE AMINOTRANSFERASE 36 U/L (15-37); BILIRUBIN,TOTAL 0.4 mg/dL (0.1-1.0); CALCIUM, TOTAL 8.8 mg/dL (8.8-10.5); CARBON DIOXIDE 27 mmol/L (22-29); CHLORIDE 102 mmol/L (98-107); CREATININE 0.82 mg/dL (0.60-1.30); GLOMERULAR FILTR. RATE CALC > 60 mL/min (>60); SODIUM SERUM 138 mmol/L (136-145); THYROID STIMULATING HORMONE 1.61 uIU/mL (0.36-3.74); TOTAL PROTEIN, SERUM 7.1 g/dL (6.4-8.2); UREA NITROGEN, BLOOD 7 mg/dL (7-18)
[2017-10-14] MEDS: BENZTROPINE MESYLATE 1 MG TABLET PO SCH (09:13)
[2017-10-14] MEDS: GABAPENTIN 300 MG CAPSULE PO SCH ×3 (09:13→17:25)
[2017-10-14] MEDS: DULoxetine HCL 30 MG CAPSULE PO SCH (09:13)
[2017-10-14] MEDS: PIOGLITAZONE HCL 30 MG TABLET PO SCH (09:14)
[2017-10-14] MEDS: DOCUSATE SODIUM 250 MG CAPSULE PO SCH (09:14)
[2017-10-14] MEDS: OMEGA-3/DHA/EPA/FISH OIL 1,000 MG CAPSULE PO SCH (09:14)
[2017-10-14] MEDS: HALOPERIDOL 5 MG TABLET PO SCH ×2 (09:15→17:25)
[2017-10-14] MEDS: CHOLECALCIFEROL (VIT D3) 1,000 UNITS TABLET PO SCH (09:18)
[2017-10-14 11:38] LABS: GLUCOSE,POINT OF CARE 202 MG/DL (70-110)
[2017-10-14 11:45] VITALS: BP 112/69
[2017-10-14] MEDS: LORazepam 2 MG TABLET PO PRN ×2 (12:35→17:26)
[2017-10-14 16:37] VITALS: BP 115/61
[2017-10-14 17:17] LABS: GLUCOSE,POINT OF CARE 184 MG/DL (70-110)
[2017-10-14] MEDS: LOVASTATIN 20 MG TABLET PO SCH (17:26)
[2017-10-14] MEDS: HALOPERIDOL 10 MG TABLET PO SCH (21:05)
[2017-10-14] MEDS: TraZODone HCL 100 MG TABLET PO SCH (21:05)
[2017-10-14 21:22] LABS: GLUCOSE,POINT OF CARE 156 MG/DL (70-110)
[2017-10-15] MEDS: GlipiZIDE 10 MG TABLET PO SCH ×2 (06:43→16:19)
[2017-10-15] MEDS: MetFORMIN HCL 500 MG TABLET PO SCH ×2 (06:43→16:19)
[2017-10-15 07:26] VITALS: BP 107/65
[2017-10-15 08:02] LABS: GLUCOSE,POINT OF CARE 149 MG/DL (70-110)
[2017-10-15] MEDS: GABAPENTIN 300 MG CAPSULE PO SCH ×3 (09:08→16:18)
[2017-10-15] MEDS: PIOGLITAZONE HCL 30 MG TABLET PO SCH (09:08)
[2017-10-15] MEDS: HALOPERIDOL 5 MG TABLET PO SCH ×2 (09:08→16:19)
[2017-10-15] MEDS: CHOLECALCIFEROL (VIT D3) 1,000 UNITS TABLET PO SCH (09:08)
[2017-10-15] MEDS: OMEGA-3/DHA/EPA/FISH OIL 1,000 MG CAPSULE PO SCH (09:08)
[2017-10-15] MEDS: DOCUSATE SODIUM 250 MG CAPSULE PO SCH (09:08)
[2017-10-15] MEDS: BENZTROPINE MESYLATE 1 MG TABLET PO SCH (09:08)
[2017-10-15] MEDS: DULoxetine HCL 30 MG CAPSULE PO SCH (09:08)
[2017-10-15 09:15] VITALS: BP 121/69
[2017-10-15 11:28] LABS: GLUCOSE,POINT OF CARE 241 MG/DL (70-110)
[2017-10-15] MEDS: LORazepam 2 MG TABLET PO PRN ×2 (12:11→16:18)
[2017-10-15 16:07] LABS: GLUCOSE,POINT OF CARE 179 MG/DL (70-110)
[2017-10-15 16:09] VITALS: BP 111/73
[2017-10-15] MEDS: LOVASTATIN 20 MG TABLET PO SCH (16:19)
[2017-10-15] MEDS: INSULIN ASPART 100 UNITS/ML SQ PRN ×2 (17:03→20:44)
[2017-10-15] MEDS: HALOPERIDOL 10 MG TABLET PO SCH (20:18)
[2017-10-15] MEDS: TraZODone HCL 100 MG TABLET PO SCH (20:18)
[2017-10-15 20:33] LABS: GLUCOSE,POINT OF CARE 184 MG/DL (70-110)
[2017-10-16 06:23] LABS: GLUCOSE,POINT OF CARE 145 MG/DL (70-110)
[2017-10-16 06:27] VITALS: BP 102/58
[2017-10-16] MEDS: MetFORMIN HCL 500 MG TABLET PO SCH ×2 (06:43→16:13)
[2017-10-16] MEDS: GlipiZIDE 10 MG TABLET PO SCH ×2 (06:43→16:13)
[2017-10-16] MEDS: DOCUSATE SODIUM 250 MG CAPSULE PO SCH (08:25)
[2017-10-16] MEDS: BENZTROPINE MESYLATE 1 MG TABLET PO SCH (08:25)
[2017-10-16] MEDS: CHOLECALCIFEROL (VIT D3) 1,000 UNITS TABLET PO SCH (08:25)
[2017-10-16] MEDS: OMEGA-3/DHA/EPA/FISH OIL 1,000 MG CAPSULE PO SCH (08:26)
[2017-10-16] MEDS: PIOGLITAZONE HCL 30 MG TABLET PO SCH (08:27)
[2017-10-16] MEDS: GABAPENTIN 300 MG CAPSULE PO SCH ×3 (08:29→16:13)
[2017-10-16] MEDS: DULoxetine HCL 30 MG CAPSULE PO SCH (08:29)
[2017-10-16] MEDS: HALOPERIDOL 5 MG TABLET PO SCH ×2 (08:29→16:13)
[2017-10-16 08:30] VITALS: BP 129/86
[2017-10-16 11:58] LABS: GLUCOSE,POINT OF CARE 244 MG/DL (70-110)
[2017-10-16] MEDS: LORazepam 2 MG TABLET PO PRN ×3 (12:29→21:07)
[2017-10-16] MEDS: INSULIN ASPART 100 UNITS/ML SQ PRN ×3 (14:54→20:16)
[2017-10-16 15:22] LABS: GLUCOSE,POINT OF CARE 212 MG/DL (70-110)
[2017-10-16 16:07] LABS: GLUCOSE COMMENT 1 Received Meds; GLUCOSE,POINT OF CARE 172 MG/DL (70-110)
[2017-10-16] MEDS: LOVASTATIN 20 MG TABLET PO SCH (16:13)
[2017-10-16 16:24] VITALS: BP 116/77
[2017-10-16] MEDS ORDERED: ACETAMINOPHEN 325 MG TABLET PO PRN (17:45)
[2017-10-16] MEDS: IBUPROFEN 600 MG TABLET PO PRN (19:41)
[2017-10-16 19:57] LABS: GLUCOSE COMMENT 1 Received Meds; GLUCOSE,POINT OF CARE 158 MG/DL (70-110)
[2017-10-16] MEDS: TraZODone HCL 100 MG TABLET PO SCH (20:13)
[2017-10-16] MEDS: HALOPERIDOL 10 MG TABLET PO SCH (20:13)
[2017-10-17 06:13] LABS: GLUCOSE,POINT OF CARE 124 MG/DL (70-110)
[2017-10-17] MEDS: MetFORMIN HCL 500 MG TABLET PO SCH ×2 (06:24→16:43)
[2017-10-17] MEDS: GlipiZIDE 10 MG TABLET PO SCH ×2 (06:24→16:07)
[2017-10-17 06:25] VITALS: BP 101/63
[2017-10-17 08:57] VITALS: BP 111/66
[2017-10-17] MEDS: DOCUSATE SODIUM 250 MG CAPSULE PO SCH (09:18)
[2017-10-17] MEDS: PIOGLITAZONE HCL 30 MG TABLET PO SCH (09:19)
[2017-10-17] MEDS: DULoxetine HCL 30 MG CAPSULE PO SCH (09:19)
[2017-10-17] MEDS: BENZTROPINE MESYLATE 1 MG TABLET PO SCH (09:19)
[2017-10-17] MEDS: HALOPERIDOL 5 MG TABLET PO SCH ×2 (09:19→16:07)
[2017-10-17] MEDS: CHOLECALCIFEROL (VIT D3) 1,000 UNITS TABLET PO SCH (09:20)
[2017-10-17] MEDS: GABAPENTIN 300 MG CAPSULE PO SCH ×3 (09:20→16:07)
[2017-10-17] MEDS: OMEGA-3/DHA/EPA/FISH OIL 1,000 MG CAPSULE PO SCH (09:20)
[2017-10-17 10:52] LABS: GLUCOSE,POINT OF CARE 202 MG/DL (70-110)
[2017-10-17] MEDS: INSULIN ASPART 100 UNITS/ML SQ PRN ×2 (10:52→16:47)
[2017-10-17] MEDS: IBUPROFEN 600 MG TABLET PO PRN (12:06)
[2017-10-17 15:57] LABS: GLUCOSE COMMENT 1 Received Meds; GLUCOSE,POINT OF CARE 153 MG/DL (70-110)
[2017-10-17] MEDS: LORazepam 2 MG TABLET PO PRN ×2 (16:00→20:19)
[2017-10-17] MEDS: LOVASTATIN 20 MG TABLET PO SCH (16:07)
[2017-10-17 16:11] VITALS: BP 107/64
[2017-10-17 20:02] LABS: GLUCOSE,POINT OF CARE 107 MG/DL (70-110)
[2017-10-17] MEDS: ZOLPIDEM TARTRATE 10 MG TABLET PO PRN (20:19)
[2017-10-17] MEDS: TraZODone HCL 100 MG TABLET PO SCH (20:19)
[2017-10-17] MEDS: HALOPERIDOL 10 MG TABLET PO SCH (20:19)
[2017-10-18 06:12] VITALS: BP 123/73
[2017-10-18 06:27] LABS: GLUCOSE,POINT OF CARE 102 MG/DL (70-110)
[2017-10-18] MEDS: MetFORMIN HCL 500 MG TABLET PO SCH ×2 (06:39→16:27)
[2017-10-18] MEDS: GlipiZIDE 10 MG TABLET PO SCH ×2 (06:39→16:27)
[2017-10-18] MEDS: DOCUSATE SODIUM 250 MG CAPSULE PO SCH (08:35)
[2017-10-18] MEDS: GABAPENTIN 300 MG CAPSULE PO SCH ×3 (08:35→16:27)
[2017-10-18] MEDS: DULoxetine HCL 30 MG CAPSULE PO SCH (08:35)
[2017-10-18] MEDS: PIOGLITAZONE HCL 30 MG TABLET PO SCH (08:35)
[2017-10-18] MEDS: OMEGA-3/DHA/EPA/FISH OIL 1,000 MG CAPSULE PO SCH (08:35)
[2017-10-18] MEDS: CHOLECALCIFEROL (VIT D3) 1,000 UNITS TABLET PO SCH (08:35)
[2017-10-18] MEDS: BENZTROPINE MESYLATE 1 MG TABLET PO SCH (08:35)
[2017-10-18] MEDS: HALOPERIDOL 5 MG TABLET PO SCH ×2 (08:35→16:28)
[2017-10-18 09:05] VITALS: BP 97/65
[2017-10-18 10:57] LABS: GLUCOSE,POINT OF CARE 253 MG/DL (70-110)
[2017-10-18] MEDS: INSULIN ASPART 100 UNITS/ML SQ PRN ×2 (11:37→21:33)
[2017-10-18] MEDS: LORazepam 2 MG TABLET PO PRN ×2 (12:24→16:28)
[2017-10-18 16:13] VITALS: BP 114/70
[2017-10-18] MEDS: LOVASTATIN 20 MG TABLET PO SCH (16:27)
[2017-10-18 16:48] LABS: GLUCOSE,POINT OF CARE 126 MG/DL (70-110)
[2017-10-18] MEDS: TraZODone HCL 100 MG TABLET PO SCH (20:35)
[2017-10-18] MEDS: HALOPERIDOL 10 MG TABLET PO SCH (20:35)
[2017-10-18 20:52] LABS: GLUCOSE,POINT OF CARE 150 MG/DL (70-110)
[2017-10-18] MEDS: ZOLPIDEM TARTRATE 10 MG TABLET PO PRN (21:34)
[2017-10-19 06:17] VITALS: BP 110/68
[2017-10-19 06:42] LABS: GLUCOSE COMMENT 1 Received Meds; GLUCOSE,POINT OF CARE 98 MG/DL (70-110)
[2017-10-19] MEDS: MetFORMIN HCL 500 MG TABLET PO SCH ×2 (06:44→16:24)
[2017-10-19] MEDS: GlipiZIDE 10 MG TABLET PO SCH ×2 (06:44→16:24)
[2017-10-19] MEDS: CHOLECALCIFEROL (VIT D3) 1,000 UNITS TABLET PO SCH (08:13)
[2017-10-19] MEDS: BENZTROPINE MESYLATE 1 MG TABLET PO SCH (08:13)
[2017-10-19] MEDS: DULoxetine HCL 30 MG CAPSULE PO SCH (08:13)
[2017-10-19] MEDS: PIOGLITAZONE HCL 30 MG TABLET PO SCH (08:13)
[2017-10-19] MEDS: DOCUSATE SODIUM 250 MG CAPSULE PO SCH (08:13)
[2017-10-19] MEDS: GABAPENTIN 300 MG CAPSULE PO SCH ×3 (08:14→16:24)
[2017-10-19] MEDS: HALOPERIDOL 5 MG TABLET PO SCH ×2 (08:14→16:25)
[2017-10-19] MEDS: OMEGA-3/DHA/EPA/FISH OIL 1,000 MG CAPSULE PO SCH (08:14)
[2017-10-19] MEDS: LORazepam 2 MG TABLET PO PRN ×4 (08:14→16:40)
[2017-10-19 08:33] VITALS: BP 121/93
[2017-10-19] MEDS: INSULIN ASPART 100 UNITS/ML SQ PRN ×2 (11:49→20:25)
[2017-10-19 11:57] LABS: GLUCOSE,POINT OF CARE 166 MG/DL (70-110)
[2017-10-19 16:14] VITALS: BP 128/79
[2017-10-19] MEDS: LOVASTATIN 20 MG TABLET PO SCH (16:24)
[2017-10-19 16:27] LABS: GLUCOSE,POINT OF CARE 130 MG/DL (70-110)
[2017-10-19 20:17] LABS: GLUCOSE COMMENT 1 Received Meds; GLUCOSE,POINT OF CARE 179 MG/DL (70-110)
[2017-10-19] MEDS: HALOPERIDOL 10 MG TABLET PO SCH (20:18)
[2017-10-19] MEDS: TraZODone HCL 100 MG TABLET PO SCH (20:18)
[2017-10-19] MEDS: ZOLPIDEM TARTRATE 10 MG TABLET PO PRN (21:04)
[2017-10-20 06:12] LABS: GLUCOSE,POINT OF CARE 118 MG/DL (70-110)
[2017-10-20 06:15] VITALS: BP 103/61
[2017-10-20] MEDS: GlipiZIDE 10 MG TABLET PO SCH ×2 (06:32→16:46)
[2017-10-20] MEDS: MetFORMIN HCL 500 MG TABLET PO SCH ×2 (06:33→16:46)
[2017-10-20 09:02] VITALS: BP 98/54
[2017-10-20] MEDS: CHOLECALCIFEROL (VIT D3) 1,000 UNITS TABLET PO SCH (09:22)
[2017-10-20] MEDS: DULoxetine HCL 30 MG CAPSULE PO SCH (09:22)
[2017-10-20] MEDS: DOCUSATE SODIUM 250 MG CAPSULE PO SCH (09:22)
[2017-10-20] MEDS: OMEGA-3/DHA/EPA/FISH OIL 1,000 MG CAPSULE PO SCH (09:22)
[2017-10-20] MEDS: HALOPERIDOL 5 MG TABLET PO SCH ×2 (09:22→16:46)
[2017-10-20] MEDS: GABAPENTIN 300 MG CAPSULE PO SCH ×3 (09:22→16:47)
[2017-10-20] MEDS: BENZTROPINE MESYLATE 1 MG TABLET PO SCH (09:22)
[2017-10-20] MEDS: PIOGLITAZONE HCL 30 MG TABLET PO SCH (09:23)
[2017-10-20] MEDS: LORazepam 2 MG TABLET PO PRN ×2 (09:31→21:10)
[2017-10-20 11:32] LABS: GLUCOSE,POINT OF CARE 79 MG/DL (70-110)
[2017-10-20 16:38] VITALS: BP 111/72
[2017-10-20] MEDS: LOVASTATIN 20 MG TABLET PO SCH (16:46)
[2017-10-20 16:57] LABS: GLUCOSE,POINT OF CARE 261 MG/DL (70-110)
[2017-10-20 20:07] LABS: GLUCOSE,POINT OF CARE 170 MG/DL (70-110)
[2017-10-20] MEDS: HALOPERIDOL 10 MG TABLET PO SCH (20:15)
[2017-10-20] MEDS: TraZODone HCL 100 MG TABLET PO SCH (20:16)
[2017-10-20] MEDS: INSULIN ASPART 100 UNITS/ML SQ PRN (21:05)
[2017-10-20] MEDS: ZOLPIDEM TARTRATE 10 MG TABLET PO PRN (21:10)
[2017-10-21] MEDS: GlipiZIDE 10 MG TABLET PO SCH ×2 (06:30→17:03)
[2017-10-21] MEDS: MetFORMIN HCL 500 MG TABLET PO SCH ×2 (06:30→17:03)
[2017-10-21 06:32] LABS: GLUCOSE COMMENT 1 Received Meds; GLUCOSE,POINT OF CARE 112 MG/DL (70-110)
[2017-10-21 06:37] VITALS: BP 117/70
[2017-10-21] MEDS: GABAPENTIN 300 MG CAPSULE PO SCH ×3 (08:44→17:03)
[2017-10-21] MEDS: DOCUSATE SODIUM 250 MG CAPSULE PO SCH (08:45)
[2017-10-21] MEDS: CHOLECALCIFEROL (VIT D3) 1,000 UNITS TABLET PO SCH (08:45)
[2017-10-21] MEDS: OMEGA-3/DHA/EPA/FISH OIL 1,000 MG CAPSULE PO SCH (08:45)
[2017-10-21] MEDS: DULoxetine HCL 30 MG CAPSULE PO SCH (08:45)
[2017-10-21] MEDS: HALOPERIDOL 5 MG TABLET PO SCH ×2 (08:45→17:05)
[2017-10-21] MEDS: PIOGLITAZONE HCL 30 MG TABLET PO SCH (08:45)
[2017-10-21] MEDS: BENZTROPINE MESYLATE 1 MG TABLET PO SCH (08:45)
[2017-10-21 08:59] VITALS: BP 100/76
[2017-10-21 11:22] LABS: GLUCOSE COMMENT 1 Received Meds; GLUCOSE,POINT OF CARE 221 MG/DL (70-110)
[2017-10-21] MEDS: INSULIN ASPART 100 UNITS/ML SQ PRN (11:24)
[2017-10-21 16:17] LABS: GLUCOSE,POINT OF CARE 117 MG/DL (70-110)
[2017-10-21] MEDS: LOVASTATIN 20 MG TABLET PO SCH (17:04)
[2017-10-21 17:37] VITALS: BP 110/71
[2017-10-21 20:07] LABS: GLUCOSE,POINT OF CARE 108 MG/DL (70-110)
[2017-10-21] MEDS: ZOLPIDEM TARTRATE 10 MG TABLET PO PRN (20:23)
[2017-10-21] MEDS: HALOPERIDOL 10 MG TABLET PO SCH (20:23)
[2017-10-21] MEDS: TraZODone HCL 100 MG TABLET PO SCH (20:23)
[2017-10-22] VITALS (10 sets, daily range): BP systolic 109–120; BP diastolic 62–78
[2017-10-22 06:27] LABS: GLUCOSE COMMENT 1 Received Meds; GLUCOSE,POINT OF CARE 140 MG/DL (70-110)
[2017-10-22] MEDS: GlipiZIDE 10 MG TABLET PO SCH ×2 (06:27→16:44)
[2017-10-22] MEDS: MetFORMIN HCL 500 MG TABLET PO SCH ×2 (06:27→16:44)
[2017-10-22] MEDS: CHOLECALCIFEROL (VIT D3) 1,000 UNITS TABLET PO SCH (08:38)
[2017-10-22] MEDS: HALOPERIDOL 5 MG TABLET PO SCH ×2 (08:38→16:43)
[2017-10-22] MEDS: DOCUSATE SODIUM 250 MG CAPSULE PO SCH (08:38)
[2017-10-22] MEDS: DULoxetine HCL 30 MG CAPSULE PO SCH (08:38)
[2017-10-22] MEDS: PIOGLITAZONE HCL 30 MG TABLET PO SCH (08:38)
[2017-10-22] MEDS: OMEGA-3/DHA/EPA/FISH OIL 1,000 MG CAPSULE PO SCH (08:38)
[2017-10-22] MEDS: BENZTROPINE MESYLATE 1 MG TABLET PO SCH (08:38)
[2017-10-22] MEDS: GABAPENTIN 300 MG CAPSULE PO SCH ×3 (08:39→16:44)
[2017-10-22] MEDS: HALOPERIDOL 5 MG TABLET PO PRN (10:37)
[2017-10-22] MEDS: LORazepam 2 MG TABLET PO PRN ×2 (10:37→20:07)
[2017-10-22 12:27] LABS: GLUCOSE,POINT OF CARE 120 MG/DL (70-110)
[2017-10-22] MEDS: LOVASTATIN 20 MG TABLET PO SCH (16:44)
[2017-10-22 17:13] LABS: GLUCOSE,POINT OF CARE 82 MG/DL (70-110)
[2017-10-22] MEDS: IBUPROFEN 600 MG TABLET PO PRN (17:52)
[2017-10-22] MEDS: TraZODone HCL 100 MG TABLET PO SCH (20:07)
[2017-10-22] MEDS: HALOPERIDOL 10 MG TABLET PO SCH (20:07)
[2017-10-22] MEDS: INSULIN ASPART 100 UNITS/ML SQ PRN (20:14)
[2017-10-22 20:53] LABS: GLUCOSE,POINT OF CARE 173 MG/DL (70-110)
[2017-10-23] MEDS: GlipiZIDE 10 MG TABLET PO SCH ×2 (06:35→16:23)
[2017-10-23] MEDS: MetFORMIN HCL 500 MG TABLET PO SCH ×2 (06:35→16:23)
[2017-10-23 06:38] LABS: GLUCOSE,POINT OF CARE 117 MG/DL (70-110)
[2017-10-23 07:00] VITALS: BP 115/76
[2017-10-23] MEDS: GABAPENTIN 300 MG CAPSULE PO SCH ×3 (08:19→16:24)
[2017-10-23] MEDS: DULoxetine HCL 30 MG CAPSULE PO SCH (08:19)
[2017-10-23] MEDS: HALOPERIDOL 5 MG TABLET PO SCH ×2 (08:19→16:23)
[2017-10-23] MEDS: CHOLECALCIFEROL (VIT D3) 1,000 UNITS TABLET PO SCH (08:19)
[2017-10-23] MEDS: BENZTROPINE MESYLATE 1 MG TABLET PO SCH (08:20)
[2017-10-23] MEDS: DOCUSATE SODIUM 250 MG CAPSULE PO SCH (08:20)
[2017-10-23] MEDS: PIOGLITAZONE HCL 30 MG TABLET PO SCH (08:20)
[2017-10-23] MEDS: OMEGA-3/DHA/EPA/FISH OIL 1,000 MG CAPSULE PO SCH (08:20)
[2017-10-23 09:02] VITALS: BP 120/68
[2017-10-23 11:13] LABS: GLUCOSE,POINT OF CARE 59 MG/DL (70-110)
[2017-10-23 11:54] LABS: GLUCOSE,POINT OF CARE 116 MG/DL (70-110)
[2017-10-23] MEDS: LORazepam 2 MG TABLET PO PRN (12:05)
[2017-10-23 16:07] LABS: GLUCOSE,POINT OF CARE 131 MG/DL (70-110)
[2017-10-23] MEDS: LOVASTATIN 20 MG TABLET PO SCH (16:23)
[2017-10-23 16:54] VITALS: BP 112/65
[2017-10-23 20:22] LABS: GLUCOSE COMMENT 1 Received Meds; GLUCOSE,POINT OF CARE 150 MG/DL (70-110)
[2017-10-23] MEDS: HALOPERIDOL 10 MG TABLET PO SCH (20:22)
[2017-10-23] MEDS: TraZODone HCL 100 MG TABLET PO SCH (20:23)
[2017-10-23] MEDS: INSULIN ASPART 100 UNITS/ML SQ PRN (20:54)
[2017-10-24 06:08] LABS: GLUCOSE,POINT OF CARE 94 MG/DL (70-110)
[2017-10-24] MEDS: MetFORMIN HCL 500 MG TABLET PO SCH ×2 (06:23→16:21)
[2017-10-24 06:24] VITALS: BP 106/75
[2017-10-24] MEDS: GlipiZIDE 10 MG TABLET PO SCH ×2 (06:24→16:20)
[2017-10-24 08:26] VITALS: BP 111/62
[2017-10-24] MEDS: DOCUSATE SODIUM 250 MG CAPSULE PO SCH (08:50)
[2017-10-24] MEDS: BENZTROPINE MESYLATE 1 MG TABLET PO SCH (08:50)
[2017-10-24] MEDS: DULoxetine HCL 30 MG CAPSULE PO SCH (08:50)
[2017-10-24] MEDS: HALOPERIDOL 5 MG TABLET PO SCH ×2 (08:51→16:21)
[2017-10-24] MEDS: PIOGLITAZONE HCL 30 MG TABLET PO SCH (08:51)
[2017-10-24] MEDS: CHOLECALCIFEROL (VIT D3) 1,000 UNITS TABLET PO SCH (08:51)
[2017-10-24] MEDS: OMEGA-3/DHA/EPA/FISH OIL 1,000 MG CAPSULE PO SCH (08:51)
[2017-10-24] MEDS: GABAPENTIN 300 MG CAPSULE PO SCH ×3 (08:51→16:21)
[2017-10-24] MEDS: HALOPERIDOL 5 MG TABLET PO PRN (09:52)
[2017-10-24] MEDS: LORazepam 2 MG TABLET PO PRN ×2 (09:52→15:43)
[2017-10-24 11:07] LABS: GLUCOSE,POINT OF CARE 137 MG/DL (70-110)
[2017-10-24] MEDS: LOVASTATIN 20 MG TABLET PO SCH (16:21)
[2017-10-24 16:48] LABS: GLUCOSE COMMENT 1 Received Meds; GLUCOSE,POINT OF CARE 126 MG/DL (70-110)
[2017-10-24 17:24] VITALS: BP 122/79
[2017-10-24] MEDS: TraZODone HCL 100 MG TABLET PO SCH (21:00)
[2017-10-24] MEDS: HALOPERIDOL 10 MG TABLET PO SCH (21:00)
[2017-10-24 22:44] VITALS: BP 110/74
[2017-10-25] MEDS: ZOLPIDEM TARTRATE 10 MG TABLET PO PRN (00:33)
[2017-10-25 06:27] LABS: GLUCOSE COMMENT 1 Received Meds; GLUCOSE,POINT OF CARE 118 MG/DL (70-110)
[2017-10-25 06:28] VITALS: BP 109/71
[2017-10-25] MEDS: MetFORMIN HCL 500 MG TABLET PO SCH ×2 (06:47→16:53)
[2017-10-25] MEDS: GlipiZIDE 10 MG TABLET PO SCH ×2 (06:47→16:05)
[2017-10-25] MEDS: HALOPERIDOL 5 MG TABLET PO SCH ×2 (08:17→16:06)
[2017-10-25] MEDS: BENZTROPINE MESYLATE 1 MG TABLET PO SCH (08:17)
[2017-10-25] MEDS: DOCUSATE SODIUM 250 MG CAPSULE PO SCH (08:17)
[2017-10-25] MEDS: PIOGLITAZONE HCL 30 MG TABLET PO SCH (08:17)
[2017-10-25] MEDS: DULoxetine HCL 30 MG CAPSULE PO SCH (08:17)
[2017-10-25] MEDS: GABAPENTIN 300 MG CAPSULE PO SCH ×3 (08:17→16:06)
[2017-10-25] MEDS: CHOLECALCIFEROL (VIT D3) 1,000 UNITS TABLET PO SCH (08:17)
[2017-10-25] MEDS: OMEGA-3/DHA/EPA/FISH OIL 1,000 MG CAPSULE PO SCH (08:17)
[2017-10-25 08:30] VITALS: BP 108/66
[2017-10-25] MEDS: INSULIN ASPART 100 UNITS/ML SQ PRN ×3 (11:07→20:15)
[2017-10-25 11:11] LABS: GLUCOSE COMMENT 1 Received Meds; GLUCOSE,POINT OF CARE 174 MG/DL (70-110)
[2017-10-25] MEDS: LORazepam 2 MG TABLET PO PRN ×3 (11:39→20:18)
[2017-10-25 16:00] VITALS: BP_SYST 108; BP_SYST 138; BP_DIAS 68
[2017-10-25] MEDS: LOVASTATIN 20 MG TABLET PO SCH (16:05)
[2017-10-25 16:13] LABS: GLUCOSE COMMENT 1 Received Meds; GLUCOSE,POINT OF CARE 235 MG/DL (70-110)
[2017-10-25 20:16] LABS: GLUCOSE COMMENT 1 Received Meds; GLUCOSE,POINT OF CARE 198 MG/DL (70-110)
[2017-10-25] MEDS: TraZODone HCL 100 MG TABLET PO SCH (20:18)
[2017-10-25] MEDS: HALOPERIDOL 10 MG TABLET PO SCH (20:19)
[2017-10-26] MEDS: GlipiZIDE 10 MG TABLET PO SCH ×2 (06:17→16:38)
[2017-10-26 06:28] LABS: GLUCOSE,POINT OF CARE 107 MG/DL (70-110)
[2017-10-26] MEDS: MetFORMIN HCL 500 MG TABLET PO SCH ×2 (06:33→16:38)
[2017-10-26 06:51] VITALS: BP 113/61
[2017-10-26] MEDS: HALOPERIDOL 5 MG TABLET PO SCH ×2 (08:27→16:38)
[2017-10-26] MEDS: BENZTROPINE MESYLATE 1 MG TABLET PO SCH (08:27)
[2017-10-26] MEDS: DOCUSATE SODIUM 250 MG CAPSULE PO SCH (08:27)
[2017-10-26] MEDS: GABAPENTIN 300 MG CAPSULE PO SCH ×3 (08:27→16:38)
[2017-10-26] MEDS: DULoxetine HCL 30 MG CAPSULE PO SCH (08:27)
[2017-10-26] MEDS: CHOLECALCIFEROL (VIT D3) 1,000 UNITS TABLET PO SCH (08:27)
[2017-10-26] MEDS: PIOGLITAZONE HCL 30 MG TABLET PO SCH (08:27)
[2017-10-26] MEDS: LORazepam 2 MG TABLET PO PRN ×3 (08:27→17:10)
[2017-10-26 08:30] VITALS: BP 89/49
[2017-10-26] MEDS: OMEGA-3/DHA/EPA/FISH OIL 1,000 MG CAPSULE PO SCH (09:57)
[2017-10-26] MEDS: INSULIN ASPART 100 UNITS/ML SQ PRN (11:31)
[2017-10-26 11:32] LABS: GLUCOSE COMMENT 1 Received Meds; GLUCOSE,POINT OF CARE 174 MG/DL (70-110)
[2017-10-26 16:07] VITALS: BP 114/71
[2017-10-26] MEDS: LOVASTATIN 20 MG TABLET PO SCH (16:39)
[2017-10-26 16:47] LABS: GLUCOSE,POINT OF CARE 87 MG/DL (70-110)
[2017-10-26] MEDS: HALOPERIDOL 10 MG TABLET PO SCH (20:29)
[2017-10-26] MEDS: TraZODone HCL 100 MG TABLET PO SCH (20:29)
[2017-10-26 20:52] LABS: GLUCOSE,POINT OF CARE 88 MG/DL (70-110)
[2017-10-27 06:19] VITALS: BP 120/80
[2017-10-27] MEDS: GlipiZIDE 10 MG TABLET PO SCH ×2 (06:32→17:25)
[2017-10-27] MEDS: MetFORMIN HCL 500 MG TABLET PO SCH ×2 (06:32→17:25)
[2017-10-27 06:43] LABS: GLUCOSE COMMENT 1 Received Meds; GLUCOSE,POINT OF CARE 94 MG/DL (70-110)
[2017-10-27] MEDS: OMEGA-3/DHA/EPA/FISH OIL 1,000 MG CAPSULE PO SCH (08:42)
[2017-10-27] MEDS: PIOGLITAZONE HCL 30 MG TABLET PO SCH (08:42)
[2017-10-27] MEDS: CHOLECALCIFEROL (VIT D3) 1,000 UNITS TABLET PO SCH (08:43)
[2017-10-27] MEDS: BENZTROPINE MESYLATE 1 MG TABLET PO SCH (08:43)
[2017-10-27] MEDS: DULoxetine HCL 30 MG CAPSULE PO SCH (08:44)
[2017-10-27] MEDS: DOCUSATE SODIUM 250 MG CAPSULE PO SCH (08:47)
[2017-10-27] MEDS: HALOPERIDOL 5 MG TABLET PO SCH ×2 (08:47→17:25)
[2017-10-27] MEDS: GABAPENTIN 300 MG CAPSULE PO SCH ×3 (09:53→17:26)
[2017-10-27] MEDS: HALOPERIDOL 5 MG TABLET PO PRN (10:54)
[2017-10-27] MEDS: LORazepam 2 MG TABLET PO PRN ×3 (10:55→21:41)
[2017-10-27 11:42] LABS: GLUCOSE,POINT OF CARE 150 MG/DL (70-110)
[2017-10-27] MEDS: INSULIN ASPART 100 UNITS/ML SQ PRN ×2 (11:44→16:30)
[2017-10-27 11:47] VITALS: BP 100/60
[2017-10-27 16:10] VITALS: BP 118/74
[2017-10-27 17:03] LABS: GLUCOSE COMMENT 1 Received Meds; GLUCOSE,POINT OF CARE 174 MG/DL (70-110)
[2017-10-27] MEDS: LOVASTATIN 20 MG TABLET PO SCH (17:25)
[2017-10-27 20:57] LABS: GLUCOSE,POINT OF CARE 134 MG/DL (70-110)
[2017-10-27] MEDS: TraZODone HCL 100 MG TABLET PO SCH (20:57)
[2017-10-27] MEDS: ZOLPIDEM TARTRATE 10 MG TABLET PO PRN (20:57)
[2017-10-27] MEDS: HALOPERIDOL 10 MG TABLET PO SCH (20:57)
[2017-10-28 06:09] VITALS: BP 135/92
[2017-10-28 06:22] LABS: GLUCOSE COMMENT 1 Received Meds; GLUCOSE,POINT OF CARE 93 MG/DL (70-110)
[2017-10-28] MEDS: MetFORMIN HCL 500 MG TABLET PO SCH ×2 (06:33→16:44)
[2017-10-28] MEDS: GlipiZIDE 10 MG TABLET PO SCH ×2 (06:33→16:43)
[2017-10-28 08:59] VITALS: BP 100/57
[2017-10-28] MEDS: GABAPENTIN 300 MG CAPSULE PO SCH ×3 (09:04→16:43)
[2017-10-28] MEDS: OMEGA-3/DHA/EPA/FISH OIL 1,000 MG CAPSULE PO SCH (09:04)
[2017-10-28] MEDS: CHOLECALCIFEROL (VIT D3) 1,000 UNITS TABLET PO SCH (09:04)
[2017-10-28] MEDS: DULoxetine HCL 30 MG CAPSULE PO SCH (09:04)
[2017-10-28] MEDS: DOCUSATE SODIUM 250 MG CAPSULE PO SCH (09:04)
[2017-10-28] MEDS: BENZTROPINE MESYLATE 1 MG TABLET PO SCH (09:04)
[2017-10-28] MEDS: HALOPERIDOL 5 MG TABLET PO SCH ×2 (09:05→16:43)
[2017-10-28] MEDS: PIOGLITAZONE HCL 30 MG TABLET PO SCH (09:05)
[2017-10-28 11:52] LABS: GLUCOSE,POINT OF CARE 136 MG/DL (70-110)
[2017-10-28] MEDS: LORazepam 2 MG TABLET PO PRN ×2 (12:19→19:41)
[2017-10-28 16:07] VITALS: BP 100/60
[2017-10-28] MEDS: LOVASTATIN 20 MG TABLET PO SCH (16:43)
[2017-10-28 17:38] LABS: GLUCOSE,POINT OF CARE 116 MG/DL (70-110)
[2017-10-28] MEDS: TraZODone HCL 100 MG TABLET PO SCH (20:47)
[2017-10-28] MEDS: HALOPERIDOL 10 MG TABLET PO SCH (20:47)
[2017-10-28 20:52] LABS: GLUCOSE,POINT OF CARE 219 MG/DL (70-110)
[2017-10-28] MEDS: INSULIN ASPART 100 UNITS/ML SQ PRN (20:56)
[2017-10-29] MEDS: MetFORMIN HCL 500 MG TABLET PO SCH ×2 (06:31→17:03)
[2017-10-29] MEDS: GlipiZIDE 10 MG TABLET PO SCH ×2 (06:31→16:22)
[2017-10-29 06:49] LABS: GLUCOSE COMMENT 1 Received Meds; GLUCOSE,POINT OF CARE 105 MG/DL (70-110)
[2017-10-29 06:58] VITALS: BP 110/62
[2017-10-29 08:25] VITALS: BP 106/64
[2017-10-29] MEDS: CHOLECALCIFEROL (VIT D3) 1,000 UNITS TABLET PO SCH (09:15)
[2017-10-29] MEDS: DOCUSATE SODIUM 250 MG CAPSULE PO SCH (09:15)
[2017-10-29] MEDS: BENZTROPINE MESYLATE 1 MG TABLET PO SCH (09:15)
[2017-10-29] MEDS: DULoxetine HCL 30 MG CAPSULE PO SCH (09:15)
[2017-10-29] MEDS: GABAPENTIN 300 MG CAPSULE PO SCH ×3 (09:15→17:04)
[2017-10-29] MEDS: HALOPERIDOL 5 MG TABLET PO SCH ×2 (09:15→16:24)
[2017-10-29] MEDS: OMEGA-3/DHA/EPA/FISH OIL 1,000 MG CAPSULE PO SCH (09:15)
[2017-10-29] MEDS: PIOGLITAZONE HCL 30 MG TABLET PO SCH (09:15)
[2017-10-29 12:03] LABS: GLUCOSE,POINT OF CARE 93 MG/DL (70-110)
[2017-10-29] MEDS: LORazepam 2 MG TABLET PO PRN ×2 (14:46→19:33)
[2017-10-29 16:17] VITALS: BP 106/71
[2017-10-29] MEDS: LOVASTATIN 20 MG TABLET PO SCH (16:22)
[2017-10-29 17:38] LABS: GLUCOSE,POINT OF CARE 106 MG/DL (70-110)
[2017-10-29] MEDS: TraZODone HCL 100 MG TABLET PO SCH (20:14)
[2017-10-29] MEDS: HALOPERIDOL 10 MG TABLET PO SCH (20:14)
[2017-10-29 21:57] LABS: GLUCOSE,POINT OF CARE 130 MG/DL (70-110)
[2017-10-30] MEDS: MetFORMIN HCL 500 MG TABLET PO SCH (06:23)
[2017-10-30 06:27] LABS: GLUCOSE,POINT OF CARE 119 MG/DL (70-110)
[2017-10-30] MEDS: GlipiZIDE 10 MG TABLET PO SCH (06:32)
[2017-10-30 07:09] VITALS: BP 100/60
[2017-10-30 08:13] VITALS: BP 116/83
[2017-10-30] MEDS: HALOPERIDOL 5 MG TABLET PO SCH (09:30)
[2017-10-30] MEDS: BENZTROPINE MESYLATE 1 MG TABLET PO SCH (09:30)
[2017-10-30] MEDS: OMEGA-3/DHA/EPA/FISH OIL 1,000 MG CAPSULE PO SCH (09:30)
[2017-10-30] MEDS: DOCUSATE SODIUM 250 MG CAPSULE PO SCH (09:31)
[2017-10-30] MEDS: DULoxetine HCL 30 MG CAPSULE PO SCH (09:31)
[2017-10-30] MEDS: PIOGLITAZONE HCL 30 MG TABLET PO SCH (09:31)
[2017-10-30] MEDS: GABAPENTIN 300 MG CAPSULE PO SCH (09:31)
[2017-10-30] MEDS: CHOLECALCIFEROL (VIT D3) 1,000 UNITS TABLET PO SCH (09:31)
[2017-10-30] MEDS: INSULIN ASPART 100 UNITS/ML SQ PRN (11:23)
[2017-10-30 16:07] LABS: GLUCOSE,POINT OF CARE 153 MG/DL (70-110)
== END 2017-10-30 11:50 | disposition home or self-care (01) | DRG 885 ==
LOC: EDSTATUS 13:52 → B2S 14:39 → B3A 21:05
DX: F25.0 Schizoaffective disorder, bipolar type (principal); E11.65 Type 2 diabetes mellitus with hyperglycemia; R45.851 Suicidal ideations; E55.9 Vitamin D deficiency, unspecified; E66.9 Obesity, unspecified; F41.9 Anxiety disorder, unspecified; M54.5 Low back pain; E78.5 Hyperlipidemia, unspecified; G47.00 Insomnia, unspecified; K59.00 Constipation, unspecified; Z79.899 Other long term (current) drug therapy; Z90.49 Acquired absence of other specified parts of digestive tract; Z91.14 Patient's other noncompliance with medication regimen; Z98.51 Tubal ligation status; Z68.31 Body mass index [BMI] 31.0-31.9, adult
CPT/HCPCS: 82962; 83036; 84439; 84443; 87081

== ENCOUNTER 2017-10-24 18:29 | Emergency (ER) | payer OTHER ==
[~2017-10-24] VITALS: Ht 160 cm; Wt 77.3 kg
[2017-10-24 19:52] LABS: GLUCOSE,POINT OF CARE 150 MG/DL (70-110)
[2017-10-24] MEDS ORDERED: IBUPROFEN 800 MG TABLET PO ONE (20:15)
[2017-10-24 21:02] VITALS: BP 108/68
== END 2017-10-24 22:21 | disposition home or self-care (01) ==
LOC: EMS 18:31
DX: S60.221A Contusion of right hand, initial encounter (principal); E11.9 Type 2 diabetes mellitus without complications; Z02.89 Encounter for other administrative examinations; W22.8XXA Striking against or struck by other objects, initial encounter; Y93.89 Activity, other specified; Y92.89 Other specified places as the place of occurrence of the external cause; Y99.8 Other external cause status
CPT/HCPCS: 82962; 99284

== ENCOUNTER 2018-01-13 12:16 | Inpatient (IN) | payer OTHER ==
[~2018-01-13] VITALS: Ht 160 cm; Wt 88.7 kg
[~2018-01-13 12:16] MED LIST changes: -CHOL10002 PO; -DOCU250C91 PO; -OMEG-135 PO
[2018-01-13] MEDS ORDERED: ZOLPIDEM TARTRATE 10 MG TABLET PO PRN (12:30)
[2018-01-13] MEDS ORDERED: HALOPERIDOL 5 MG TABLET PO PRN (12:30)
[2018-01-13 12:58] VITALS: BP 101/72
[2018-01-13] MEDS: GABAPENTIN 400 MG CAPSULE PO SCH ×2 (14:38→16:44)
[2018-01-13] MEDS ORDERED: INFLUENZA VIRUS VACCINE QVS 2017-18 (3YR+)/PF 60 MCG/0.5 ML SYRINGE IM ONE (15:45)
[2018-01-13 16:41] VITALS: BP 136/74
[2018-01-13] MEDS: MetFORMIN HCL 500 MG TABLET PO SCH (16:44)
[2018-01-13] MEDS: HALOPERIDOL 5 MG TABLET PO SCH (16:44)
[2018-01-13] MEDS: GlipiZIDE 10 MG TABLET PO SCH (16:44)
[2018-01-13] MEDS: LOVASTATIN 20 MG TABLET PO SCH (16:45)
[2018-01-13] MEDS: HALOPERIDOL 10 MG TABLET PO SCH (20:42)
[2018-01-13] MEDS: TraZODone HCL 100 MG TABLET PO SCH (20:42)
[2018-01-14 06:12] VITALS: BP 119/84
[2018-01-14] MEDS: MetFORMIN HCL 500 MG TABLET PO SCH ×2 (06:49→16:47)
[2018-01-14] MEDS: GlipiZIDE 10 MG TABLET PO SCH ×2 (06:49→16:47)
[2018-01-14 08:36] VITALS: BP 112/76
[2018-01-14] MEDS: PIOGLITAZONE HCL 30 MG TABLET PO SCH (08:46)
[2018-01-14] MEDS: HALOPERIDOL 5 MG TABLET PO SCH ×2 (08:46→16:53)
[2018-01-14] MEDS: DULoxetine HCL 60 MG CAPSULE PO SCH (08:48)
[2018-01-14] MEDS: BENZTROPINE MESYLATE 1 MG TABLET PO SCH (08:48)
[2018-01-14] MEDS: GABAPENTIN 400 MG CAPSULE PO SCH ×3 (08:48→16:47)
[2018-01-14] MEDS ORDERED: PETROLATUM,WHITE 71 GM JELLY TP PRN (10:30)
[2018-01-14] MEDS ORDERED: BACITRACIN 28.4 GM OINTMENT TP PRN (10:30)
[2018-01-14] MEDS ORDERED: MAGNESIUM HYDROXIDE SUSPENSION 30 ML UDCUP PO PRN (10:30)
[2018-01-14] MEDS ORDERED: ONDANSETRON HCL 4 MG TABLET PO PRN (10:30)
[2018-01-14] MEDS ORDERED: MAG HYDROX/AL HYDROX/SIMETH ES 30 ML SUSPENSION UDCUP PO PRN (10:30)
[2018-01-14] MEDS ORDERED: ACETAMINOPHEN 325 MG TABLET PO PRN (10:30)
[2018-01-14] MEDS ORDERED: IBUPROFEN 600 MG TABLET PO PRN (10:30)
[2018-01-14] MEDS ORDERED: ALBUTEROL SULFATE HFA 90 MCG/PUFF 8 GM INHALER IH PRN (10:30)
[2018-01-14] MEDS ORDERED: CloNIDine HCL 0.1 MG TABLET PO PRN (10:30)
[2018-01-14] MEDS ORDERED: LOPERAMIDE HCL 2 MG CAPSULE PO PRN (10:30)
[2018-01-14] MEDS ORDERED: GLUCAGON,HUMAN RECOMBINANT 1 MG VIAL IM PRN (10:30)
[2018-01-14] MEDS ORDERED: BENZOCAINE/MENTHOL LOZENGE MM PRN (10:30)
[2018-01-14] MEDS: LORazepam 2 MG TABLET PO PRN ×2 (10:53→16:47)
[2018-01-14 12:32] LABS: GLUCOMETER DEV NAME(LOC) BV3S 2; GLUCOSE,POINT OF CARE 133 MG/DL (70-110)
[2018-01-14 12:32] LABS: GLUCOMETER DEV NAME(LOC) BV3S 2; GLUCOSE,POINT OF CARE 84 MG/DL (70-110)
[2018-01-14 16:02] VITALS: BP 103/63
[2018-01-14] MEDS: LOVASTATIN 20 MG TABLET PO SCH (16:48)
[2018-01-14] MEDS: TraZODone HCL 100 MG TABLET PO SCH (20:37)
[2018-01-14] MEDS: HALOPERIDOL 10 MG TABLET PO SCH (20:37)
[2018-01-14 20:38] LABS: GLUCOMETER DEV NAME(LOC) BV3S 2; GLUCOSE,POINT OF CARE 256 MG/DL (70-110)
[2018-01-14 20:38] LABS: GLUCOMETER DEV NAME(LOC) BV3S 2; GLUCOSE,POINT OF CARE 126 MG/DL (70-110)
[2018-01-15] MEDS: GlipiZIDE 10 MG TABLET PO SCH ×2 (06:30→16:39)
[2018-01-15] MEDS: MetFORMIN HCL 500 MG TABLET PO SCH ×2 (06:30→16:54)
[2018-01-15 06:38] LABS: GLUCOMETER DEV NAME(LOC) BV3S 2; GLUCOSE,POINT OF CARE 84 MG/DL (70-110)
[2018-01-15 06:55] VITALS: BP 111/70
[2018-01-15 08:11] LABS: BASOPHILS % (AUTO) 0.5 % (0.0-2.0); EOSINOPHILS % (AUTO) 3.2 % (1.0-6.0); HEMATOCRIT 37.5 % (36-46); HEMOGLOBIN 12.5 g/dL (12.0-16.0); LYMPHOCYTES # (AUTO) 2.8 K/uL (1.0-4.8); LYMPHOCYTES % (AUTO) 33.4 % (22.0-44.0); MEAN CORPUSCULAR HEMOGLOBIN 28.5 pg (26.0-34.0); MEAN CORPUSCULAR HGB CONC 33.3 G/dL (31.0-37.0); MEAN CORPUSCULAR VOLUME 86 fL (80-100); MONOCYTES # (AUTO) 0.5 K/uL (0.1-1.0); MONOCYTES % (AUTO) 5.8 % (2.0-9.0); NEUTROPHILS # (AUTO) 4.8 K/uL (1.8-7.7); NEUTROPHILS % (AUTO) 57.1 % (40.0-70.0); PLATELET COUNT (AUTO) 189 K/uL (150-450); RED BLOOD CELL COUNT(AUTO) 4.38 MIL/uL (4.00-5.20)
[2018-01-15] MEDS: CHOLECALCIFEROL (VIT D3) 1,000 UNITS TABLET PO SCH (08:32)
[2018-01-15] MEDS: GABAPENTIN 400 MG CAPSULE PO SCH ×3 (08:32→16:56)
[2018-01-15] MEDS: PIOGLITAZONE HCL 30 MG TABLET PO SCH (08:32)
[2018-01-15] MEDS: BENZTROPINE MESYLATE 1 MG TABLET PO SCH (08:32)
[2018-01-15] MEDS: HALOPERIDOL 5 MG TABLET PO SCH ×2 (08:32→16:56)
[2018-01-15] MEDS: OMEGA-3/DHA/EPA/FISH OIL 1,000 MG CAPSULE PO SCH (08:33)
[2018-01-15] MEDS: DULoxetine HCL 60 MG CAPSULE PO SCH (08:33)
[2018-01-15 08:53] LABS: HEMOGLOBIN A1C 7.6 % (4.5-6.2)
[2018-01-15 08:55] LABS: ALANINE AMINOTRANSFERASE 23 U/L (12-78); ALBUMIN 3.4 g/dL (3.4-5.0); ALKALINE PHOSPHATASE 91 U/L (46-116); ANION GAP 11 mmol/L (8-16); ASPARTATE AMINOTRANSFERASE 20 U/L (15-37); BILIRUBIN,TOTAL 0.2 mg/dL (0.1-1.0); CALCIUM, TOTAL 8.9 mg/dL (8.8-10.5); CARBON DIOXIDE 26 mmol/L (22-29); CHLORIDE 105 mmol/L (98-107); CHOLESTEROL 147 mg/dL (131-200); CREATININE 0.64 mg/dL (0.60-1.30); FREE T4 (FREE THYROXINE) 0.87 ng/dL (0.76-1.46); GLOMERULAR FILTR. RATE CALC > 60 mL/min (>60); GLUCOSE,RANDOM 87 mg/dL (70-110); HCG,QUANTITATIVE < 1 mIU/mL (0-6); HDL CHOLESTEROL 37 mg/dL (40-60); LDL CHOL (CALC.) 77 mg/dL (0-130); POTASSIUM 4.2 mmol/L (3.5-5.1); SODIUM SERUM 142 mmol/L (136-145); THYROID STIMULATING HORMONE 1.76 uIU/mL (0.36-3.74); TOTAL PROTEIN, SERUM 7.1 g/dL (6.4-8.2); TRIGLYCERIDES 166 mg/dL (15-150); UREA NITROGEN, BLOOD 11 mg/dL (7-18)
[2018-01-15] MEDS: INSULIN ASPART 100 UNITS/ML SQ PRN ×2 (11:49→12:04)
[2018-01-15 11:59] LABS: GLUCOMETER DEV NAME(LOC) BV3S 2; GLUCOSE,POINT OF CARE 151 MG/DL (70-110)
[2018-01-15 16:01] VITALS: BP 109/62
[2018-01-15] MEDS: LOVASTATIN 20 MG TABLET PO SCH (16:54)
[2018-01-15] MEDS: LORazepam 2 MG TABLET PO PRN (16:56)
[2018-01-15 17:02] LABS: GLUCOMETER DEV NAME(LOC) BV3S 2; GLUCOSE,POINT OF CARE 92 MG/DL (70-110)
[2018-01-15] MEDS: TraZODone HCL 100 MG TABLET PO SCH (21:13)
[2018-01-15] MEDS: HALOPERIDOL 10 MG TABLET PO SCH (21:13)
[2018-01-15 22:37] LABS: GLUCOMETER DEV NAME(LOC) BV3S 2; GLUCOSE,POINT OF CARE 82 MG/DL (70-110)
[2018-01-15 22:37] LABS: GLUCOMETER DEV NAME(LOC) BV3S 2; GLUCOSE,POINT OF CARE 53 MG/DL (70-110)
[2018-01-16] MEDS: MetFORMIN HCL 500 MG TABLET PO SCH (06:31)
[2018-01-16] MEDS: GlipiZIDE 10 MG TABLET PO SCH (06:31)
[2018-01-16 06:32] LABS: GLUCOMETER DEV NAME(LOC) BV3S 2; GLUCOSE,POINT OF CARE 97 MG/DL (70-110)
[2018-01-16 06:41] VITALS: BP 98/78
[2018-01-16 08:17] VITALS: BP 94/74
[2018-01-16] MEDS: BENZTROPINE MESYLATE 1 MG TABLET PO SCH (08:29)
[2018-01-16] MEDS: PIOGLITAZONE HCL 30 MG TABLET PO SCH (08:29)
[2018-01-16] MEDS: CHOLECALCIFEROL (VIT D3) 1,000 UNITS TABLET PO SCH (08:29)
[2018-01-16] MEDS: OMEGA-3/DHA/EPA/FISH OIL 1,000 MG CAPSULE PO SCH (08:29)
[2018-01-16] MEDS: HALOPERIDOL 5 MG TABLET PO SCH (08:29)
[2018-01-16] MEDS: GABAPENTIN 400 MG CAPSULE PO SCH (08:29)
[2018-01-16] MEDS: DULoxetine HCL 60 MG CAPSULE PO SCH (08:29)
[2018-01-16] MEDS ORDERED: VITAD1000 PO (09:10)
[2018-01-16] MEDS ORDERED: OMEG-135 PO (09:10)
[2018-01-16] MEDS ORDERED: DULO60CA44 PO (09:12)
[2018-01-16] MEDS ORDERED: GABA-326 PO (09:13)
== END 2018-01-16 10:38 | disposition home or self-care (01) | DRG 885 ==
LOC: B3A 12:44
DX: F25.0 Schizoaffective disorder, bipolar type (principal); E11.65 Type 2 diabetes mellitus with hyperglycemia; R45.851 Suicidal ideations; E55.9 Vitamin D deficiency, unspecified; E66.9 Obesity, unspecified; E78.5 Hyperlipidemia, unspecified; F41.9 Anxiety disorder, unspecified; G47.00 Insomnia, unspecified; K59.00 Constipation, unspecified; M54.5 Low back pain; F60.3 Borderline personality disorder; Z68.34 Body mass index [BMI] 34.0-34.9, adult; Z79.899 Other long term (current) drug therapy; Z90.49 Acquired absence of other specified parts of digestive tract; Z98.891 History of uterine scar from previous surgery; Z98.51 Tubal ligation status
CPT/HCPCS: 82962; 83036; 84436; 84439; 84443

== ENCOUNTER → 2018-01-26 | Outpatient (CLI) | payer OTHER ==
[~2018-01-26] MED LIST changes: -DULO30CA2 PO; +DULO60CA44 PO; +GABA-326 PO; -GABA-531 PO; +OMEG-135 PO; +VITAD1000 PO
== END | disposition home or self-care (01) ==
LOC: LABMN 11:00
DX: F25.0 Schizoaffective disorder, bipolar type (principal)

== ENCOUNTER 2018-03-16 14:04 | Inpatient (IN) | payer OTHER, MEDICAID ==
[~2018-03-16] VITALS: Ht 160 cm; Wt 83.5 kg
[~2018-03-16 14:04] MED LIST changes: +DOCU100C33 PO; -GABA-326 PO; -GLIP10 PO; +HALO10 PO; -HALO10TA15 PO; +HALO5 PO; -HALO5TAB23 PO; +LITH300C3 PO; +LOVA20 PO; -LOVA40TA2 PO; -METF10002 PO; +METF10004 PO; +OMEP20 PO
[2018-03-16 14:33] LABS: GLUCOSE,POINT OF CARE 406 MG/DL (70-110)
[2018-03-16] MEDS ORDERED: INSULIN REGULAR, HUMAN 100 UNITS/ML IVP ONE (16:00)
[2018-03-16] MEDS ORDERED: SODIUM CHLORIDE 0.9% 1,000 ML IV ONE (16:00)
[2018-03-16 17:10] LABS: ANION GAP 6 mmol/L (8-16); CALCIUM, TOTAL 9.2 mg/dL (8.8-10.5); CARBON DIOXIDE 30 mmol/L (22-29); CHLORIDE 93 mmol/L (98-107); CREATININE 0.96 mg/dL (0.60-1.30); GLOMERULAR FILTR. RATE CALC > 60 mL/min (>60); GLUCOSE,RANDOM 329 mg/dL (70-110); POTASSIUM 3.9 mmol/L (3.5-5.1); SODIUM SERUM 129 mmol/L (136-145); UREA NITROGEN, BLOOD 7 mg/dL (7-18)
[2018-03-16] MEDS ORDERED: HALOPERIDOL 5 MG TABLET PO PRN (17:30)
[2018-03-16 17:31] LABS: BASOPHILS % (AUTO) 0.3 % (0.0-2.0); EOSINOPHILS % (AUTO) 0.4 % (1.0-6.0); HEMATOCRIT 35.5 % (36-46); HEMOGLOBIN 11.9 g/dL (12.0-16.0); LYMPHOCYTES # (AUTO) 1.6 K/uL (1.0-4.8); LYMPHOCYTES % (AUTO) 15.2 % (22.0-44.0); MEAN CORPUSCULAR HEMOGLOBIN 28.4 pg (26.0-34.0); MEAN CORPUSCULAR HGB CONC 33.6 G/dL (31.0-37.0); MEAN CORPUSCULAR VOLUME 84 fL (80-100); MONOCYTES # (AUTO) 1.1 K/uL (0.1-1.0); MONOCYTES % (AUTO) 10.2 % (2.0-9.0); NEUTROPHILS # (AUTO) 7.8 K/uL (1.8-7.7); NEUTROPHILS % (AUTO) 73.9 % (40.0-70.0); PLATELET COUNT (AUTO) 208 K/uL (150-450); RED CELL DISTRIBUTION WIDTH 13.3 % (11.5-14.5)
[2018-03-16 17:38] LABS: AMPHET/METH SCREEN,URINE NEGATIVE (NEGATIVE); BARBITURATE SCREEN, URINE NEGATIVE (NEGATIVE); BENZODIAZEPINES SCREEN,URINE NEGATIVE (NEGATIVE); CANNABINOID SCREEN,URINE NEGATIVE (NEGATIVE); COCAINE SCREEN,URINE NEGATIVE (NEGATIVE); METHADONE SCREEN, URINE NEGATIVE (NEGATIVE); OPIATE SCREEN,URINE NEGATIVE (NEGATIVE)
[2018-03-16 17:39] LABS: PHENCYCLIDINE SCREEN,URINE NEGATIVE (NEGATIVE)
[2018-03-16 18:04] LABS: CHOL/HDL RATIO 4.8 (3.9-5.7); CHOLESTEROL 152 mg/dL (131-200); FREE T4 (FREE THYROXINE) 1.27 ng/dL (0.76-1.46); HDL CHOLESTEROL 32 mg/dL (40-60); LDL CHOL (CALC.) 102 mg/dL (0-130); THYROID STIMULATING HORMONE 2.56 uIU/mL (0.36-3.74); TRIGLYCERIDES 89 mg/dL (15-150)
[2018-03-16 18:07] LABS: GLUCOSE,POINT OF CARE 193 MG/DL (70-110)
[2018-03-16 19:22] LABS: GLUCOSE,POINT OF CARE 211 MG/DL (70-110)
[2018-03-16] MEDS ORDERED: ACETAMINOPHEN 325 MG TABLET PO PRN ×2 (20:30→21:45)
[2018-03-16] MEDS ORDERED: ALBUTEROL SULFATE HFA 90 MCG/PUFF 8 GM INHALER IH PRN ×2 (20:30→21:45)
[2018-03-16] MEDS ORDERED: ONDANSETRON HCL 4 MG TABLET PO PRN ×2 (20:30→21:45)
[2018-03-16] MEDS ORDERED: GLUCAGON,HUMAN RECOMBINANT 1 MG VIAL IM PRN (20:30)
[2018-03-16] MEDS ORDERED: PETROLATUM,WHITE 71 GM JELLY TP PRN ×2 (20:30→21:45)
[2018-03-16] MEDS ORDERED: IBUPROFEN 600 MG TABLET PO PRN ×2 (20:30→21:45)
[2018-03-16] MEDS ORDERED: BACITRACIN 28.4 GM OINTMENT TP PRN ×2 (20:30→21:45)
[2018-03-16] MEDS ORDERED: CloNIDine HCL 0.1 MG TABLET PO PRN ×2 (20:30→21:45)
[2018-03-16] MEDS ORDERED: LOPERAMIDE HCL 2 MG CAPSULE PO PRN ×2 (20:30→21:45)
[2018-03-16] MEDS ORDERED: MAG HYDROX/AL HYDROX/SIMETH ES 30 ML SUSPENSION UDCUP PO PRN ×2 (20:30→21:45)
[2018-03-16] MEDS ORDERED: BENZOCAINE/MENTHOL LOZENGE MM PRN ×2 (20:30→21:45)
[2018-03-16] MEDS ORDERED: MAGNESIUM HYDROXIDE SUSPENSION 30 ML UDCUP PO PRN ×2 (20:30→21:45)
[2018-03-16 20:42] VITALS: BP 117/77
[2018-03-16] MEDS ORDERED: HYDROCORTISONE 1% 30 GM CREAM TP SCH (21:00)
[2018-03-16] MEDS: TraZODone HCL 100 MG TABLET PO SCH (21:16)
[2018-03-16] MEDS: HALOPERIDOL 10 MG TABLET PO SCH (21:17)
[2018-03-16] MEDS: LITHIUM CARBONATE 300 MG CAPSULE PO SCH (21:17)
[2018-03-16] MEDS ORDERED: INSULIN LISPRO 100 UNITS/ML SQ ONE ×2 (21:45→22:45)
[2018-03-16 22:37] LABS: GLUCOMETER DEV NAME(LOC) BV3S 2; GLUCOSE,POINT OF CARE 337 MG/DL (70-110)
[2018-03-17 01:13] VITALS: BP 112/62
[2018-03-17] MEDS: ZOLPIDEM TARTRATE 10 MG TABLET PO PRN (02:37)
[2018-03-17 06:23] LABS: GLUCOMETER DEV NAME(LOC) BV3S 2; GLUCOSE,POINT OF CARE 237 MG/DL (70-110)
[2018-03-17] MEDS: INSULIN LISPRO 100 UNITS/ML SQ PRN ×4 (06:40→21:15)
[2018-03-17] MEDS ORDERED: OMEPRAZOLE 20 MG CAPSULE PO SCH (09:00)
[2018-03-17] MEDS ORDERED: DOCUSATE SODIUM 100 MG CAPSULE PO SCH (09:00)
[2018-03-17] MEDS: OMEPRAZOLE 20 MG CAPSULE PO SCH (09:25)
[2018-03-17] MEDS: BENZTROPINE MESYLATE 1 MG TABLET PO SCH (09:25)
[2018-03-17] MEDS: CHOLECALCIFEROL (VIT D3) 1,000 UNITS TABLET PO SCH (09:25)
[2018-03-17] MEDS: HALOPERIDOL 5 MG TABLET PO SCH ×2 (09:25→16:14)
[2018-03-17] MEDS: DULoxetine HCL 60 MG CAPSULE PO SCH (09:26)
[2018-03-17] MEDS: DOCUSATE SODIUM 100 MG CAPSULE PO SCH (09:26)
[2018-03-17] MEDS: PIOGLITAZONE HCL 30 MG TABLET PO SCH (09:26)
[2018-03-17] MEDS: OMEGA-3/DHA/EPA/FISH OIL 1,000 MG CAPSULE PO SCH (09:26)
[2018-03-17] MEDS: LITHIUM CARBONATE 300 MG CAPSULE PO SCH ×2 (09:26→16:14)
[2018-03-17] MEDS: LORazepam 2 MG TABLET PO PRN ×2 (09:34→17:07)
[2018-03-17 12:17] LABS: GLUCOMETER DEV NAME(LOC) BV3S 2; GLUCOSE,POINT OF CARE 268 MG/DL (70-110)
[2018-03-17] MEDS: LOVASTATIN 20 MG TABLET PO SCH (16:15)
[2018-03-17 16:25] VITALS: BP 138/88
[2018-03-17 17:22] LABS: GLUCOMETER DEV NAME(LOC) BV3S 2; GLUCOSE,POINT OF CARE 270 MG/DL (70-110)
[2018-03-17] MEDS: TraZODone HCL 100 MG TABLET PO SCH (20:48)
[2018-03-17 20:49] LABS: GLUCOMETER DEV NAME(LOC) BV3S 2; GLUCOSE,POINT OF CARE 347 MG/DL (70-110)
[2018-03-17] MEDS: HALOPERIDOL 10 MG TABLET PO SCH (20:49)
[2018-03-18 05:57] VITALS: BP 135/68
[2018-03-18 06:28] LABS: GLUCOMETER DEV NAME(LOC) BV3S 2; GLUCOSE,POINT OF CARE 269 MG/DL (70-110)
[2018-03-18] MEDS: INSULIN LISPRO 100 UNITS/ML SQ PRN ×4 (06:32→21:00)
[2018-03-18 08:12] LABS: HEMOGLOBIN 11.6 g/dL (12.0-16.0); MEAN CORPUSCULAR HEMOGLOBIN 28.6 pg (26.0-34.0); MEAN CORPUSCULAR HGB CONC 34.1 G/dL (31.0-37.0); MEAN CORPUSCULAR VOLUME 84 fL (80-100); PLATELET COUNT (AUTO) 209 K/uL (150-450); RED BLOOD CELL COUNT(AUTO) 4.06 MIL/uL (4.00-5.20); RED CELL DISTRIBUTION WIDTH 13.7 % (11.5-14.5)
[2018-03-18 08:15] VITALS: BP 110/63
[2018-03-18 08:36] LABS: ANION GAP 7 mmol/L (8-16); CALCIUM, TOTAL 9.2 mg/dL (8.8-10.5); CARBON DIOXIDE 28 mmol/L (22-29); CHLORIDE 98 mmol/L (98-107); CHOL/HDL RATIO 5.3 (3.9-5.7); CHOLESTEROL 144 mg/dL (131-200); CREATININE 0.95 mg/dL (0.60-1.30); GLOMERULAR FILTR. RATE CALC > 60 mL/min (>60); GLUCOSE,RANDOM 270 mg/dL (70-110); HDL CHOLESTEROL 27 mg/dL (40-60); LDL CHOL (CALC.) 93 mg/dL (0-130); PHOSPHORUS 3.1 mg/dL (2.5-4.9); POTASSIUM 4.1 mmol/L (3.5-5.1); SODIUM SERUM 133 mmol/L (136-145); THYROID STIMULATING HORMONE 3.71 uIU/mL (0.36-3.74); TRIGLYCERIDES 120 mg/dL (15-150); UREA NITROGEN, BLOOD 8 mg/dL (7-18)
[2018-03-18] MEDS: OMEPRAZOLE 20 MG CAPSULE PO SCH (08:41)
[2018-03-18] MEDS: DOCUSATE SODIUM 100 MG CAPSULE PO SCH (08:41)
[2018-03-18] MEDS: LITHIUM CARBONATE 300 MG CAPSULE PO SCH ×2 (08:41→17:22)
[2018-03-18] MEDS: HALOPERIDOL 5 MG TABLET PO SCH ×2 (08:41→17:22)
[2018-03-18] MEDS: CHOLECALCIFEROL (VIT D3) 1,000 UNITS TABLET PO SCH (08:42)
[2018-03-18] MEDS: DULoxetine HCL 60 MG CAPSULE PO SCH (08:42)
[2018-03-18] MEDS: OMEGA-3/DHA/EPA/FISH OIL 1,000 MG CAPSULE PO SCH (08:42)
[2018-03-18 08:49] LABS: HEMOGLOBIN A1C 9.8 % (4.5-6.2)
[2018-03-18] MEDS: PIOGLITAZONE HCL 30 MG TABLET PO SCH (08:52)
[2018-03-18] MEDS: BENZTROPINE MESYLATE 1 MG TABLET PO SCH (08:54)
[2018-03-18 10:15] LABS: BAND NEUTROPHILS % (MANUAL) 2 % (0-5); LYMPHOCYTES % (MANUAL) 19 % (22-44); MONOCYTES % (MANUAL) 4 % (2-9); SEGMENTED NEUTROPHILS % 75 % (40-70)
[2018-03-18 12:23] LABS: GLUCOMETER DEV NAME(LOC) BV3S 2; GLUCOSE,POINT OF CARE 272 MG/DL (70-110)
[2018-03-18] MEDS: LORazepam 2 MG TABLET PO PRN ×2 (12:24→21:04)
[2018-03-18 16:16] VITALS: BP 116/62
[2018-03-18 16:42] LABS: GLUCOMETER DEV NAME(LOC) BV3S 2; GLUCOSE,POINT OF CARE 306 MG/DL (70-110)
[2018-03-18] MEDS: LOVASTATIN 20 MG TABLET PO SCH (17:22)
[2018-03-18 20:48] LABS: GLUCOMETER DEV NAME(LOC) BV3S 2; GLUCOSE,POINT OF CARE 278 MG/DL (70-110)
[2018-03-18] MEDS: HALOPERIDOL 10 MG TABLET PO SCH (21:03)
[2018-03-18] MEDS: TraZODone HCL 100 MG TABLET PO SCH (21:03)
[2018-03-18] MEDS: ZOLPIDEM TARTRATE 10 MG TABLET PO PRN (21:04)
[2018-03-19 05:53] LABS: GLUCOMETER DEV NAME(LOC) BV3S 2; GLUCOSE,POINT OF CARE 242 MG/DL (70-110)
[2018-03-19] MEDS: INSULIN LISPRO 100 UNITS/ML SQ PRN ×4 (05:53→21:45)
[2018-03-19] MEDS: MetFORMIN HCL 500 MG TABLET PO SCH ×2 (06:26→16:33)
[2018-03-19 07:00] VITALS: BP 122/68
[2018-03-19 08:15] VITALS: BP 109/68
[2018-03-19] MEDS: SODIUM CHLORIDE 1 GM TABLET PO SCH ×2 (09:20→16:34)
[2018-03-19] MEDS: DOCUSATE SODIUM 100 MG CAPSULE PO SCH (09:20)
[2018-03-19] MEDS: CHOLECALCIFEROL (VIT D3) 1,000 UNITS TABLET PO SCH (09:20)
[2018-03-19] MEDS: OMEGA-3/DHA/EPA/FISH OIL 1,000 MG CAPSULE PO SCH (09:20)
[2018-03-19] MEDS: HALOPERIDOL 5 MG TABLET PO SCH ×2 (09:20→16:47)
[2018-03-19] MEDS: BENZTROPINE MESYLATE 1 MG TABLET PO SCH (09:20)
[2018-03-19] MEDS: LITHIUM CARBONATE 300 MG CAPSULE PO SCH ×2 (09:20→16:33)
[2018-03-19] MEDS: DULoxetine HCL 60 MG CAPSULE PO SCH (09:20)
[2018-03-19] MEDS: OMEPRAZOLE 20 MG CAPSULE PO SCH (09:21)
[2018-03-19] MEDS: PIOGLITAZONE HCL 30 MG TABLET PO SCH (09:21)
[2018-03-19 13:06] LABS: GLUCOMETER DEV NAME(LOC) BV3S 2; GLUCOSE,POINT OF CARE 269 MG/DL (70-110)
[2018-03-19] MEDS: LORazepam 2 MG TABLET PO PRN (14:51)
[2018-03-19 16:05] VITALS: BP 111/65
[2018-03-19] MEDS: LOVASTATIN 20 MG TABLET PO SCH (16:48)
[2018-03-19 16:52] LABS: GLUCOMETER DEV NAME(LOC) BV3S 2; GLUCOSE,POINT OF CARE 237 MG/DL (70-110)
[2018-03-19] MEDS: HALOPERIDOL 10 MG TABLET PO SCH (20:36)
[2018-03-19] MEDS: TraZODone HCL 100 MG TABLET PO SCH (20:36)
[2018-03-19 20:47] LABS: GLUCOMETER DEV NAME(LOC) BV3S 2; GLUCOSE,POINT OF CARE 239 MG/DL (70-110)
[2018-03-19] MEDS: ZOLPIDEM TARTRATE 10 MG TABLET PO PRN (21:36)
[2018-03-20 05:22] VITALS: BP 110/88
[2018-03-20 06:07] LABS: GLUCOMETER DEV NAME(LOC) BV3S 2; GLUCOSE,POINT OF CARE 196 MG/DL (70-110)
[2018-03-20] MEDS: INSULIN LISPRO 100 UNITS/ML SQ PRN ×2 (06:27→11:45)
[2018-03-20] MEDS: MetFORMIN HCL 500 MG TABLET PO SCH ×2 (06:56→16:31)
[2018-03-20 08:32] VITALS: BP 100/56
[2018-03-20] MEDS: LITHIUM CARBONATE 300 MG CAPSULE PO SCH ×2 (09:25→16:32)
[2018-03-20] MEDS: PIOGLITAZONE HCL 30 MG TABLET PO SCH (09:25)
[2018-03-20] MEDS: DOCUSATE SODIUM 100 MG CAPSULE PO SCH (09:25)
[2018-03-20] MEDS: HALOPERIDOL 5 MG TABLET PO SCH ×2 (09:25→16:31)
[2018-03-20] MEDS: OMEGA-3/DHA/EPA/FISH OIL 1,000 MG CAPSULE PO SCH (09:25)
[2018-03-20] MEDS: CHOLECALCIFEROL (VIT D3) 1,000 UNITS TABLET PO SCH (09:25)
[2018-03-20] MEDS: OMEPRAZOLE 20 MG CAPSULE PO SCH (09:26)
[2018-03-20] MEDS: BENZTROPINE MESYLATE 1 MG TABLET PO SCH (09:26)
[2018-03-20] MEDS: DULoxetine HCL 60 MG CAPSULE PO SCH (09:26)
[2018-03-20 11:12] LABS: GLUCOMETER DEV NAME(LOC) BV3S 2; GLUCOSE,POINT OF CARE 219 MG/DL (70-110)
[2018-03-20] MEDS: LOVASTATIN 20 MG TABLET PO SCH (16:32)
[2018-03-20 17:02] LABS: GLUCOMETER DEV NAME(LOC) BV3S 2; GLUCOSE,POINT OF CARE 95 MG/DL (70-110)
[2018-03-20 17:16] VITALS: BP 104/71
[2018-03-20] MEDS: HALOPERIDOL 10 MG TABLET PO SCH (20:32)
[2018-03-20] MEDS: TraZODone HCL 100 MG TABLET PO SCH (20:32)
[2018-03-20 21:09] LABS: GLUCOMETER DEV NAME(LOC) BV3S 2; GLUCOSE,POINT OF CARE 158 MG/DL (70-110)
[2018-03-20] MEDS: ZOLPIDEM TARTRATE 10 MG TABLET PO PRN (22:28)
[2018-03-21 01:32] VITALS: BP 103/65
[2018-03-21 06:42] LABS: GLUCOMETER DEV NAME(LOC) BV3S 2; GLUCOSE,POINT OF CARE 222 MG/DL (70-110)
[2018-03-21] MEDS: MetFORMIN HCL 500 MG TABLET PO SCH ×2 (06:55→17:13)
[2018-03-21] MEDS: INSULIN LISPRO 100 UNITS/ML SQ PRN ×2 (06:55→11:43)
[2018-03-21 08:15] VITALS: BP 115/66
[2018-03-21 08:39] LABS: ANION GAP 8 mmol/L (8-16); CARBON DIOXIDE 27 mmol/L (22-29); CHLORIDE 100 mmol/L (98-107); CREATININE 0.98 mg/dL (0.60-1.30); GLOMERULAR FILTR. RATE CALC > 60 mL/min (>60); GLUCOSE,RANDOM 221 mg/dL (70-110); POTASSIUM 4.1 mmol/L (3.5-5.1); SODIUM SERUM 135 mmol/L (136-145); UREA NITROGEN, BLOOD 11 mg/dL (7-18)
[2018-03-21] MEDS: OMEPRAZOLE 20 MG CAPSULE PO SCH (08:42)
[2018-03-21] MEDS: BENZTROPINE MESYLATE 1 MG TABLET PO SCH (08:42)
[2018-03-21] MEDS: OMEGA-3/DHA/EPA/FISH OIL 1,000 MG CAPSULE PO SCH (08:42)
[2018-03-21] MEDS: DOCUSATE SODIUM 100 MG CAPSULE PO SCH (08:42)
[2018-03-21] MEDS: PIOGLITAZONE HCL 30 MG TABLET PO SCH (08:43)
[2018-03-21] MEDS: DULoxetine HCL 60 MG CAPSULE PO SCH (08:43)
[2018-03-21] MEDS: LITHIUM CARBONATE 300 MG CAPSULE PO SCH ×2 (08:43→17:13)
[2018-03-21] MEDS: CHOLECALCIFEROL (VIT D3) 1,000 UNITS TABLET PO SCH (08:43)
[2018-03-21] MEDS: HALOPERIDOL 5 MG TABLET PO SCH ×2 (08:43→17:13)
[2018-03-21] MEDS: LORazepam 2 MG TABLET PO PRN ×2 (08:46→16:58)
[2018-03-21 12:12] LABS: GLUCOMETER DEV NAME(LOC) BV3S 2; GLUCOSE,POINT OF CARE 322 MG/DL (70-110)
[2018-03-21 16:12] VITALS: BP 100/65
[2018-03-21] MEDS: LOVASTATIN 20 MG TABLET PO SCH (17:13)
[2018-03-21 18:43] LABS: GLUCOMETER DEV NAME(LOC) BV3S 2; GLUCOSE,POINT OF CARE 121 MG/DL (70-110)
[2018-03-21] MEDS: HALOPERIDOL 10 MG TABLET PO SCH (20:38)
[2018-03-21] MEDS: TraZODone HCL 100 MG TABLET PO SCH (20:39)
[2018-03-21 21:18] LABS: GLUCOMETER DEV NAME(LOC) BV3S 2; GLUCOSE,POINT OF CARE 136 MG/DL (70-110)
[2018-03-22 04:39] VITALS: BP 101/62
[2018-03-22] MEDS: INSULIN LISPRO 100 UNITS/ML SQ PRN ×2 (06:52→11:50)
[2018-03-22] MEDS: MetFORMIN HCL 500 MG TABLET PO SCH ×2 (06:53→17:46)
[2018-03-22 07:01] LABS: GLUCOMETER DEV NAME(LOC) BV3S 2; GLUCOSE,POINT OF CARE 143 MG/DL (70-110)
[2018-03-22 08:11] VITALS: BP 100/53
[2018-03-22] MEDS: PIOGLITAZONE HCL 30 MG TABLET PO SCH (08:45)
[2018-03-22] MEDS: BENZTROPINE MESYLATE 1 MG TABLET PO SCH (08:45)
[2018-03-22] MEDS: HALOPERIDOL 5 MG TABLET PO SCH ×2 (08:45→17:46)
[2018-03-22] MEDS: OMEGA-3/DHA/EPA/FISH OIL 1,000 MG CAPSULE PO SCH (08:45)
[2018-03-22] MEDS: DOCUSATE SODIUM 100 MG CAPSULE PO SCH (08:45)
[2018-03-22] MEDS: DULoxetine HCL 60 MG CAPSULE PO SCH (08:45)
[2018-03-22] MEDS: LITHIUM CARBONATE 300 MG CAPSULE PO SCH ×2 (08:45→17:46)
[2018-03-22] MEDS: OMEPRAZOLE 20 MG CAPSULE PO SCH (08:45)
[2018-03-22] MEDS: CHOLECALCIFEROL (VIT D3) 1,000 UNITS TABLET PO SCH (08:46)
[2018-03-22] MEDS: LORazepam 2 MG TABLET PO PRN ×2 (08:46→17:46)
[2018-03-22 09:00] VITALS: BP 112/68
[2018-03-22 13:42] LABS: GLUCOMETER DEV NAME(LOC) BV3S 2; GLUCOSE,POINT OF CARE 193 MG/DL (70-110)
[2018-03-22 16:13] VITALS: BP 114/62
[2018-03-22 17:32] LABS: GLUCOMETER DEV NAME(LOC) BV3S 2; GLUCOSE,POINT OF CARE 220 MG/DL (70-110)
[2018-03-22] MEDS: LOVASTATIN 20 MG TABLET PO SCH (17:46)
[2018-03-22 21:12] LABS: GLUCOMETER DEV NAME(LOC) BV3S 2; GLUCOSE,POINT OF CARE 127 MG/DL (70-110)
[2018-03-22] MEDS: ZOLPIDEM TARTRATE 10 MG TABLET PO PRN (21:37)
[2018-03-22] MEDS: HALOPERIDOL 10 MG TABLET PO SCH (21:37)
[2018-03-22] MEDS: TraZODone HCL 100 MG TABLET PO SCH (21:37)
[2018-03-23 06:33] LABS: GLUCOMETER DEV NAME(LOC) BV3S 2; GLUCOSE,POINT OF CARE 157 MG/DL (70-110)
[2018-03-23] MEDS: MetFORMIN HCL 500 MG TABLET PO SCH ×2 (06:55→16:50)
[2018-03-23] MEDS: INSULIN LISPRO 100 UNITS/ML SQ PRN ×2 (06:56→17:18)
[2018-03-23 07:03] VITALS: BP 103/60
[2018-03-23 08:13] VITALS: BP 100/62
[2018-03-23] MEDS: DOCUSATE SODIUM 100 MG CAPSULE PO SCH (08:41)
[2018-03-23] MEDS: HALOPERIDOL 5 MG TABLET PO SCH ×2 (08:41→16:50)
[2018-03-23] MEDS: PIOGLITAZONE HCL 30 MG TABLET PO SCH (08:41)
[2018-03-23] MEDS: LITHIUM CARBONATE 300 MG CAPSULE PO SCH ×2 (08:41→16:50)
[2018-03-23] MEDS: OMEPRAZOLE 20 MG CAPSULE PO SCH (08:42)
[2018-03-23] MEDS: OMEGA-3/DHA/EPA/FISH OIL 1,000 MG CAPSULE PO SCH (08:42)
[2018-03-23] MEDS: CHOLECALCIFEROL (VIT D3) 1,000 UNITS TABLET PO SCH (08:42)
[2018-03-23] MEDS: BENZTROPINE MESYLATE 1 MG TABLET PO SCH (08:42)
[2018-03-23] MEDS: LORazepam 2 MG TABLET PO PRN (08:42)
[2018-03-23] MEDS: DULoxetine HCL 60 MG CAPSULE PO SCH (08:42)
[2018-03-23 11:32] LABS: GLUCOMETER DEV NAME(LOC) BV3S 2; GLUCOSE,POINT OF CARE 139 MG/DL (70-110)
[2018-03-23] MEDS: LOVASTATIN 20 MG TABLET PO SCH (16:51)
[2018-03-23 17:01] VITALS: BP 118/67
[2018-03-23 17:12] LABS: GLUCOMETER DEV NAME(LOC) BV3S 2; GLUCOSE,POINT OF CARE 198 MG/DL (70-110)
[2018-03-23 21:13] LABS: GLUCOMETER DEV NAME(LOC) BV3S 2; GLUCOSE,POINT OF CARE 125 MG/DL (70-110)
[2018-03-23] MEDS: HALOPERIDOL 10 MG TABLET PO SCH (21:22)
[2018-03-23] MEDS: TraZODone HCL 100 MG TABLET PO SCH (21:22)
[2018-03-24 06:35] VITALS: BP 102/61
[2018-03-24] MEDS: MetFORMIN HCL 500 MG TABLET PO SCH ×2 (06:45→17:04)
[2018-03-24] MEDS: INSULIN LISPRO 100 UNITS/ML SQ PRN ×3 (06:46→17:10)
[2018-03-24 06:53] LABS: GLUCOMETER DEV NAME(LOC) BV3S 2; GLUCOSE,POINT OF CARE 149 MG/DL (70-110)
[2018-03-24] MEDS: HALOPERIDOL 5 MG TABLET PO SCH ×2 (08:09→17:03)
[2018-03-24] MEDS: PIOGLITAZONE HCL 30 MG TABLET PO SCH (08:09)
[2018-03-24] MEDS: BENZTROPINE MESYLATE 1 MG TABLET PO SCH (08:09)
[2018-03-24] MEDS: DULoxetine HCL 60 MG CAPSULE PO SCH (08:09)
[2018-03-24] MEDS: CHOLECALCIFEROL (VIT D3) 1,000 UNITS TABLET PO SCH (08:09)
[2018-03-24] MEDS: LORazepam 2 MG TABLET PO PRN ×2 (08:09→17:25)
[2018-03-24] MEDS: LITHIUM CARBONATE 300 MG CAPSULE PO SCH ×2 (08:09→17:03)
[2018-03-24] MEDS: DOCUSATE SODIUM 100 MG CAPSULE PO SCH (08:09)
[2018-03-24] MEDS: OMEPRAZOLE 20 MG CAPSULE PO SCH (08:09)
[2018-03-24] MEDS: OMEGA-3/DHA/EPA/FISH OIL 1,000 MG CAPSULE PO SCH (08:10)
[2018-03-24 09:55] VITALS: BP 124/53
[2018-03-24 11:37] LABS: GLUCOMETER DEV NAME(LOC) BV3S 2; GLUCOSE,POINT OF CARE 210 MG/DL (70-110)
[2018-03-24 16:05] VITALS: BP 102/65
[2018-03-24 16:42] LABS: GLUCOMETER DEV NAME(LOC) BV3S 2; GLUCOSE,POINT OF CARE 164 MG/DL (70-110)
[2018-03-24] MEDS: LOVASTATIN 20 MG TABLET PO SCH (17:03)
[2018-03-24] MEDS: HALOPERIDOL 10 MG TABLET PO SCH (20:20)
[2018-03-24] MEDS: TraZODone HCL 100 MG TABLET PO SCH (20:20)
[2018-03-25 03:15] VITALS: BP 103/62
[2018-03-25 06:07] LABS: GLUCOMETER DEV NAME(LOC) BV3S 2; GLUCOSE,POINT OF CARE 131 MG/DL (70-110)
[2018-03-25] MEDS: MetFORMIN HCL 500 MG TABLET PO SCH (06:36)
[2018-03-25 06:42] LABS: GLUCOMETER DEV NAME(LOC) BV3S 2; GLUCOSE,POINT OF CARE 140 MG/DL (70-110)
[2018-03-25 08:19] VITALS: BP 100/58
[2018-03-25] MEDS: CHOLECALCIFEROL (VIT D3) 1,000 UNITS TABLET PO SCH (09:44)
[2018-03-25] MEDS: PIOGLITAZONE HCL 30 MG TABLET PO SCH (09:44)
[2018-03-25] MEDS: HALOPERIDOL 5 MG TABLET PO SCH (09:44)
[2018-03-25] MEDS: OMEGA-3/DHA/EPA/FISH OIL 1,000 MG CAPSULE PO SCH (09:44)
[2018-03-25] MEDS: DOCUSATE SODIUM 100 MG CAPSULE PO SCH (09:44)
[2018-03-25] MEDS: OMEPRAZOLE 20 MG CAPSULE PO SCH (09:45)
[2018-03-25] MEDS: LITHIUM CARBONATE 300 MG CAPSULE PO SCH (09:45)
[2018-03-25] MEDS: DULoxetine HCL 60 MG CAPSULE PO SCH (09:45)
[2018-03-25] MEDS: BENZTROPINE MESYLATE 1 MG TABLET PO SCH (09:45)
[2018-03-25] MEDS ORDERED: METF500T6 PO (10:04)
[2018-03-25] MEDS ORDERED: LITH300C3 PO (10:04)
== END 2018-03-25 11:00 | disposition home or self-care (01) | DRG 885 ==
LOC: EMS 14:05 → EEVIPCON 14:05 → B3A 18:36
DX: F25.0 Schizoaffective disorder, bipolar type (principal); E11.65 Type 2 diabetes mellitus with hyperglycemia; R45.851 Suicidal ideations; E55.9 Vitamin D deficiency, unspecified; E66.9 Obesity, unspecified; R45.87 Impulsiveness; E78.5 Hyperlipidemia, unspecified; F43.10 Post-traumatic stress disorder, unspecified; F60.3 Borderline personality disorder; K59.00 Constipation, unspecified; Z90.49 Acquired absence of other specified parts of digestive tract; Z98.51 Tubal ligation status; Z79.899 Other long term (current) drug therapy; Z68.32 Body mass index [BMI] 32.0-32.9, adult
CPT/HCPCS: 82306; 83036; 83735; 84100; 84439; 84443; 85007; 96361; 96374; 99285; G0480; J1815; J7030